=== PATIENT | female | born 1945 | race Caucasian/White ===

== ENCOUNTER 2021-03-18 15:02 | Emergency (ER) | payer MEDICARE, OTHER ==
--- NOTE | 2021-03-18 15:34 | ED Physician Documentation ---
PD HPI LOWER EXT INJURY - Stated complaint Stated Complaint: SWOLLEN L FT - Chief complaint Chief Complaint: Ext Problem - History obtained from History obtained from: Patient, Family - Additional information Additional information: This is a 76-year-old woman with history of hypertension who presents to the hospital today not knowing why she is here but for evaluation of a wound on the left foot. She is accompanied by her partner who is also her caregiver. I took a call about her from the walk-in clinic yesterday and for the last 2 years she has had worsening memory issues but no clear diagnosis of dementia. She has a wound on the left ankle from wearing shoes on the wrong feet recently with increasing redness there. No reported fevers but history is quite limited due to her dementia, she does not even know she is in the hospital. Review of Systems Unable to obtain: Dementia PD PAST MEDICAL HISTORY - Present Medications Home Medications: Ambulatory Orders Medication Instructions Recorded Confirmed Amox/Clav 875/125 [Augmentin] 1 each PO Q12H #20 tablet 03/18/21 Bacitracin Zinc Oint 1 applic TOP BID #1 gm 03/18/21 - Allergies Allergies/Adverse Reactions: Allergies Allergy/AdvReac Type Severity Reaction Status Date / Time No Known Drug Allergies Allergy Verified 03/18/21 15:23 PD ED PE NORMAL - Vitals Vital signs reviewed: Yes - General General: No acute distress, Well developed/nourished, Other (She is alert and oriented to person. She does not know that she is in the hospital or why. When I asked her why she is here she says "to eat." She has no specific complaints.) - HEENT HEENT: PERRL, EOMI - Neck Neck: Supple, no meningeal sign, No bony TTP - Cardiac Cardiac: RRR, No murmur - Respiratory Respiratory: No respiratory distress, Clear bilaterally - Abdomen Abdomen: Normal bowel sounds, Soft, Non tender - Back Back: No CVA TTP, No spinal TTP - Derm Derm: Normal color, Warm and dry - Extremities Extremities: Other (Both feet are unkempt but warm and well perfused. There is a 2 x 1 cm ulcer over the posterior left calcaneus with mild surrounding cellulitis.) - Neuro Eye Opening: Spontaneous Motor: Obeys Commands Verbal: Confused GCS Score: 14 Results - Vitals Vitals: Vital Signs - 24 hr 03/18/21 03/18/2103/18/21 15:18 15:27 17:19 Temperature 36.9 C 36.9 C 36.0 C L Heart Rate 109 H 109 H 106 H Respiratory 20 20 16 Rate Blood Pressure 130/90 H 130/90 H 125/71 O2 Saturation 96 96 99 Oxygen O2 Source Room air - Labs Labs: Microbiology 03/18/21 16:00 Wound Culture - Preliminary Foot - Left Laboratory Tests 03/18/21 03/18/21 03/18/21 15:55 15:55 15:58 WBC 6.0 RBC 4.07 L Hgb 13.0 Hct 39.1 MCV 96.1 MCH 31.9 H MCHC 33.2 RDW 13.3 Plt Count 328 MPV 9.2 Neut # (Auto) 4.1 Lymph # (Auto) 1.3 L [place] # (Auto) 0.5 Eos # (Auto) 0.1 Baso # (Auto) 0.0 Absolute Nucleated RBC 0.00 Nucleated RBC % 0.0 ESR 14 Sodium 138 Potassium 4.1 Chloride 102 Carbon Dioxide 25 Anion Gap 11.0 BUN 26 H Creatinine 1.0 Estimated GFR (MDRD) 54 L Glucose 142 H Lactic Acid Calcium 8.9 C-Reactive Protein < 1.0 03/18/21 15:58 WBC RBC Hgb Hct MCV MCH MCHC RDW Plt Count MPV Neut # (Auto) Lymph # (Auto) [place] # (Auto) Eos # (Auto) Baso # (Auto) Absolute Nucleated RBC Nucleated RBC % ESR Sodium Potassium Chloride Carbon Dioxide Anion Gap BUN Creatinine Estimated GFR (MDRD) Glucose Lactic Acid 2.8 H Calcium C-Reactive Protein PD MEDICAL DECISION MAKING - ED course ED course: 76-year-old woman seen in the emergency department [facility] for evaluation of a left heel pressure ulcer from wearing her shoes backwards and she does have signs of infection there. She is placed on antibiotics. Labs are reassuring with no sign of systemic illness. Cultures of blood and wound were taken. She is started on Augmentin. She is profoundly demented and her caregiver does need some help. He was seen extensively by her social insurance analyst gave him resources which he was very thankful for. Out of an abundance of caution she is also filing an APS complaint. But the patient's caregiver/partner is comfortable with discharge. Departure - Departure Disposition: 01 Home, Self Care Clinical Impression: Pressure ulcer of left foot, unstageable, Cellulitis of left foot, Dementia Condition: Good Record reviewed to determine appropriate education?: Yes Instructions: ED Dementia Caregiver Support Follow-Up: Real Dotson MD [Credentialed Staff Provider] - Prescriptions: Amox/Clav 875/125 [Augmentin] 1 each PO Q12H #20 tablet Bacitracin Zinc Oint 1 applic TOP BID #1 gm Comments: Christiane was seen today for a wound on her foot. We noted that she is quite demented. Her blood work looks okay without signs of infection spreading to the bloodstream, we did do cultures of the blood and wound and if changes are necessary based on those results we will call you when they come back. I am writing for an antibiotic which she should take twice a day and we gave you the first dose here in the emergency department. For wound care her feet should be washed with soap and water daily, and then a Band-Aid on the wound with the antibiotic ointment, and try to keep pressure off of it and wear well fitting shoes. She is to follow-up with Dr. Dotson for reevaluation and following the wound, potential referral to wound care if not healing well. Also to go over a more formal diagnosis of dementia. We are performing a wound culture, the results should be done in 48-72 hours. If antibiotic change is necessary we will call you. Return if worse in the meantime, especially if you develop increased pain, fevers, cannot keep down the medication. Otherwise follow-up with your physician in approximately 2-3 days.
--- NOTE | 2021-03-18 15:53 | XRAY Report ---
PROCEDURE: Calcaneus LT INDICATIONS: left ankle infection TECHNIQUE: Two views of the calcaneus were acquired. COMPARISON: None FINDINGS: Bones: No fractures or dislocations. No suspicious bony lesions. No osseous erosive changes. No per iosteal reaction. Soft tissues: No suspicious calcifications. Achilles tendon appears normal. Soft tissue gas. IMPRESSION: No marisabel evidence of osteomyelitis. Please note plain from radiographs can be insensitive to changes of osteomyelitis in the initial 15 days. If there is clinical concern for osteomyelitis, consider thr ee-phase nuclear medicine bone scan or MRI for additional evaluation. Reviewed by: Cammie Nava MD, PhD on 03/18/2021 3:52 PM PST Approved by: Cammie Nava MD, PhD on 03/18/2021 3:52 PM PST Station ID: [id number]
[2021-03-18 16:03] LABS: BASOPHILS % (AUTO) 0.5 %; EOSINOPHILS # (AUTO) 0.1 10^3/uL (0.0-0.7); EOSINOPHILS % (AUTO) 0.8 %; HCT - HEMATOCRIT 39.1 % (37.0-47.0); LYMPHOCYTES # (AUTO) 1.3 10^3/uL (1.5-3.5); LYMPHOCYTES % (AUTO) 21.3 %; MEAN CORPUSCULAR HEMOGLOBIN 31.9 pg (27.0-31.0); MEAN CORPUSCULAR HGB CONC 33.2 g/dL (32.0-36.0); MEAN CORPUSCULAR VOLUME 96.1 fL (81.0-99.0); MEAN PLATELET VOLUME 9.2 fL (7.9-10.8); MONOCYTES # (AUTO) 0.5 10^3/uL (0.0-1.0); MONOCYTES % (AUTO) 8.8 %; NEUTROPHILS # (AUTO) 4.1 10^3/uL (1.5-6.6); NEUTROPHILS % (AUTO) 68.3 %; PLT - PLATELET COUNT 328 10^3/uL (130-450); RED BLOOD COUNT 4.07 10^6/uL (4.20-5.40); RED CELL DISTRIBUTION WIDTH 13.3 % (12.0-15.0)
[2021-03-18 16:18] LABS: BUN - BLOOD UREA NITROGEN 26 mg/dL (6-20); CALCIUM 8.9 mg/dL (8.5-10.3); CARBON DIOXIDE - CO2 25 mmol/L (21-32); CHLORIDE 102 mmol/L (101-111); GFR - MDRD 54 (>89); GLUCOSE 142 mg/dL (70-100); POTASSIUM 4.1 mmol/L (3.5-5.0); SODIUM 138 mmol/L (135-145)
[2021-03-18 16:30] LABS: CRP - C-REACTIVE PROTEIN < 1.0 mg/dL (0-1.0)
[2021-03-18] MEDS ORDERED: AMOX/CLAV 875 MG/125 MG TABLET PO STA (17:17)
[2021-03-18 17:19] VITALS: BP 125/71
== END 2021-03-18 17:25 | disposition home or self-care (01) ==
LOC: ED 15:02
DX: L89.620 Pressure ulcer of left heel, unstageable (principal); L03.116 Cellulitis of left lower limb; F03.90 Unspecified dementia, unspecified severity, without behavioral disturbance, psychotic disturbance, mood disturbance, and anxiety
CPT/HCPCS: 36415; 73650; 80048; 83605; 85025; 85651; 86140; 87040; 87070; 87205; 99283; 99284; A9270

== ENCOUNTER 2021-07-13 01:31 | Outpatient (CLI) | payer MEDICARE | END 2021-07-13 01:32 | disposition critical access hospital (66) | LOC: EMS 01:31 | DX: S09.92XA Unspecified injury of nose, initial encounter (principal); X58.XXXA Exposure to other specified factors, initial encounter | CPT/HCPCS: A0425; A0429 ==

== ENCOUNTER 2021-07-13 01:59 | Inpatient (IN) | payer MEDICARE ==
[2021-07-13] MEDS ORDERED: TETANUS/DIPHTHERIA/PERTUSSIS 0.5 ML SYRINGE IM ONE (02:21)
[2021-07-13] MEDS ORDERED: SODIUM CHLORIDE 0.9% 500 ML IV STA ×2 (02:21→03:25)
[2021-07-13 02:27] LABS: BASOPHILS % (AUTO) 0.3 %; EOSINOPHILS % (AUTO) 0.1 %; HCT - HEMATOCRIT 43.2 % (37.0-47.0); HGB - HEMOGLOBIN 14.4 g/dL (12.0-16.0); LYMPHOCYTES # (AUTO) 0.9 10^3/uL (1.5-3.5); MEAN CORPUSCULAR HEMOGLOBIN 31.6 pg (27.0-31.0); MEAN CORPUSCULAR HGB CONC 33.3 g/dL (32.0-36.0); MEAN CORPUSCULAR VOLUME 94.7 fL (81.0-99.0); MEAN PLATELET VOLUME 9.3 fL (7.9-10.8); MONOCYTES # (AUTO) 0.7 10^3/uL (0.0-1.0); MONOCYTES % (AUTO) 4.7 %; NEUTROPHILS # (AUTO) 13.8 10^3/uL (1.5-6.6); NEUTROPHILS % (AUTO) 88.3 %; PLT - PLATELET COUNT 309 10^3/uL (130-450); RED BLOOD COUNT 4.56 10^6/uL (4.20-5.40); RED CELL DISTRIBUTION WIDTH 12.8 % (12.0-15.0); WHITE BLOOD COUNT 15.6 x10^3/uL (4.8-10.8)
[2021-07-13 02:41] LABS: ALBUMIN 3.9 g/dL (3.2-5.5); ALBUMIN/GLOBULIN RATIO 1.3 (1.0-2.2); ALKALINE PHOSPHATASE 92 IU/L (42-121); ALT ALANINE AMINOTRANSFERASE 15 IU/L (10-60); AST ASPARTATE AMINOTRANSFERASE 30 IU/L (10-42); BILIRUBIN,TOTAL 0.5 mg/dL (0.2-1.0); BUN - BLOOD UREA NITROGEN 21 mg/dL (6-20); CALCIUM 9.1 mg/dL (8.5-10.3); CARBON DIOXIDE - CO2 24 mmol/L (21-32); CHLORIDE 98 mmol/L (101-111); CREATININE 1.1 mg/dL (0.4-1.0); ETOH - ETHANOL < 5.0 mg/dL; GFR - MDRD 48 (>89); GLUCOSE 185 mg/dL (70-100); LIPASE 36 U/L (22-51); POTASSIUM 3.9 mmol/L (3.5-5.0); SODIUM 135 mmol/L (135-145); TOTAL PROTEIN 6.9 g/dL (6.7-8.2)
--- NOTE | 2021-07-13 03:06 | ED Physician Documentation ---
History of Present Illness - Stated complaint Stated Complaint: AMS - Chief complaint Chief Complaint: General - History obtained from History obtained from: Family (Patient's partner Linwood), EMS - Additonal information Additional information: Patient with reported history of dementia presenting for evaluation after unwitnessed fall. Per her partner Linwood, she became upset around 8 PM and left the house from the front door. He had then fallen asleep for about 30 minutes and when he awoke realized that she was still gone and went to go look for her with a neighbor friend. They were unable to locate her on their own so they called 911. Law enforcement and EMS were able to find her and she had r eportedly fallen in a neighbors yard.She sustained injuries to her face. Patient is very demented and has no idea why she is here, in fact she thinks that she is currently at home. Per Linwood, this would be her baseline.Per Linwood, she has not recently been ill. Review of Systems Unable to obtain: Dementia PD PAST MEDICAL HISTORY - Past Medical History Past Medical History: Yes Neuro: Dementia - Present Medications Home Medications: Ambulatory Orders Medication Instructions Recorded Confirmed No Known Home Medications 07/13/21 07/13/21 - Allergies Allergies/Adverse Reactions: Allergies Allergy/AdvReac Type Severity Reaction Status Date / Time Penicillins Allergy Unknown Unknown Verified 07/13/21 04:08 - Social History Does the pt smoke?: No Smoking Status: Never smoker PD ED PE NORMAL - General General: No acute distress, Well developed/nourished, Other. No: Alert and oriented X 3 - HEENT HEENT: PERRL, EOMI, Ears normal, Moist mucous membranes, Pharynx benign, Other (Abrasions to nose, dried blood in left nare, mild swelling to nose, no septal hematoma,No facial bony tenderness elsewhere). No: Atraumatic (ANO x1) - Neck Neck: Supple, no meningeal sign, No bony TTP. No: C-Spine cleared by NEXUS criteria (Due to dementia) - Cardiac Cardiac: No murmur, Strong equal pulses, Other (Tachycardic, regular rhythm) - Respiratory Respiratory: No respiratory distress, Clear bilaterally - Abdomen Abdomen: Normal bowel sounds, Soft, Non tender, Non distended - Back Back: No spinal TTP - Derm Derm: Normal color, No rash - Extremities Extremities: Other (Right upper arm tenderness to palpation with limited range of motion, distal pulses intact). No: No deformity - Neuro Neuro: Normal speech, Other (No facial asymmetry,Symmetric leg strength,Right arm weakness related to pain but intact education rep strength bilaterally). No: Alert and oriented X 3 PD ED PE EXPANDED - HEENT HEENT Visual: 1 - abrasion - Extremities VAHID UE/Hands Visual: 1 - tenderness Results - Vitals Vitals: Vital Signs - 24 hr 07/13/21 02:07 Temperature 36.4 C L Heart Rate 107 H Respiratory 18 Rate Blood Pressure 132/90 H O2 Saturation 95 Oxygen O2 Source Room air - EKG (time done) 0235 Rate: Rate (enter#) (102) Rhythm: Sinus tachycardia [place]: Normal Other comments: Other comments (Significant motion artifact affecting the baseline) - Labs Labs: Laboratory Tests 07/13/21 07/13/21 07/13/21 02:22 02:22 02:22 WBC 15.6 H RBC 4.56 Hgb 14.4 Hct 43.2 MCV 94.7 MCH 31.6 H MCHC 33.3 RDW 12.8 Plt Count 309 MPV 9.3 Neut # (Auto) 13.8 H Lymph # (Auto) 0.9 L [place] # (Auto) 0.7 Eos # (Auto) 0.0 Baso # (Auto) 0.0 Absolute Nucleated RBC 0.00 Nucleated RBC % 0.0 Sodium 135 Potassium 3.9 Chloride 98 L Carbon Dioxide 24 Anion Gap 13.0 BUN 21 H Creatinine 1.1 H Estimated GFR (MDRD) 48 L Glucose 185 H Lactic Acid Calcium 9.1 Total Bilirubin 0.5 AST 30 ALT 15 Alkaline Phosphatase 92 Total Creatine Kinase Troponin I High Sens 90.1 H* Total Protein 6.9 Albumin 3.9 Globulin 3.0 Albumin/Globulin Ratio 1.3 Lipase 36 TSH Urine Color Urine Clarity Urine pH Ur Specific [place] Urine Protein Urine Glucose (UA) Urine Ketones Urine Occult Blood Urine Nitrite Urine Bilirubin Urine Urobilinogen Ur Leukocyte Esterase Urine RBC Urine WBC Ur Squamous Epith Cells Urine Bacteria Ur Microscopic Review Urine Culture Comments Ethyl Alcohol < 5.0 SARS-CoV-2 (PCR) 07/13/21 07/13/21 07/13/21 02:22 02:22 02:39 WBC RBC Hgb Hct MCV MCH MCHC RDW Plt Count MPV Neut # (Auto) Lymph # (Auto) [place] # (Auto) Eos # (Auto) Baso # (Auto) Absolute Nucleated RBC Nucleated RBC % Sodium Potassium Chloride Carbon Dioxide Anion Gap BUN Creatinine Estimated GFR (MDRD) Glucose Lactic Acid 3.0 H* Calcium Total Bilirubin AST ALT Alkaline Phosphatase Total Creatine Kinase 755 H Troponin I High Sens Total Protein Albumin Globulin Albumin/Globulin Ratio Lipase TSH 4.15 Urine Color Urine Clarity Urine pH Ur Specific [place] Urine Protein Urine Glucose (UA) Urine Ketones Urine Occult Blood Urine Nitrite Urine Bilirubin Urine Urobilinogen Ur Leukocyte Esterase Urine RBC Urine WBC Ur Squamous Epith Cells Urine Bacteria Ur Microscopic Review Urine Culture Comments Ethyl Alcohol SARS-CoV-2 (PCR) 07/13/21 07/13/21 03:30 03:30 WBC RBC Hgb Hct MCV MCH MCHC RDW Plt Count MPV Neut # (Auto) Lymph # (Auto) [place] # (Auto) Eos # (Auto) Baso # (Auto) Absolute Nucleated RBC Nucleated RBC % Sodium Potassium Chloride Carbon Dioxide Anion Gap BUN Creatinine Estimated GFR (MDRD) Glucose Lactic Acid Calcium Total Bilirubin AST ALT Alkaline Phosphatase Total Creatine Kinase Troponin I High Sens Total Protein Albumin Globulin Albumin/Globulin Ratio Lipase TSH Urine Color YELLOW Urine Clarity CLEAR Urine pH 6.0 Ur Specific [place] 1.025 Urine Protein NEGATIVE Urine Glucose (UA) NEGATIVE Urine Ketones NEGATIVE Urine Occult Blood SMALL H Urine Nitrite NEGATIVE Urine Bilirubin NEGATIVE Urine Urobilinogen 0.2 (NORMAL) Ur Leukocyte Esterase NEGATIVE Urine RBC 0-5 Urine WBC 0-3 Ur Squamous Epith Cells RARE Squamous Urine Bacteria None Seen Ur Microscopic Review INDICATED Urine Culture Comments NOT INDICATED Ethyl Alcohol SARS-CoV-2 (PCR) NOT DETECTED PD MEDICAL DECISION MAKING - ED course Complexity details: re-evaluated patient, d/w family ED course: Patient is a 76-year-old female with a history of dementia who was found outside in a neighbors yard with a facial injury. It is unclear whether she had an unwitnessed fall versus syncope or another event causing her to fall. She is very confused which appears to be her baseline from previous ED visit. She does have tenderness and limited mobility to the right arm with a proximal humerus fracture seen. CT head, C-spine and maxillofacial were obtained demonstrating a nasal bone fracture. Labs were also reviewed with a mild leukocytosis and lactic acidosis. She is slightly tachycardic which has improved with IV fluids. No clear source for infection so antibiotics are held at this time and deferred to medicine team. Troponin is elevated but patient denies any chest pain or difficulty breathing. However she is likely not a reliable historian. Patient would benefit from observation as it is unclear what may have caused her fall versus syncope this evening. Her living situation may also be unsafe And social work will likely need to be consulted. 0325 - Dr. Mccracken was down in the ED and we discussed this pt. Agrees pt needs observation. Aware imaging and UA pending. Departure - Departure Disposition: ED Place in Observation Clinical Impression: Lactic acidosis, Elevated troponin Fall Qualifiers: Encounter type: initial encounter Qualified Code(s): W19.XXXA - Unspecified fall, initial encounter Proximal humeral fracture Qualifiers: Encounter type: initial encounter Fracture type: closed Fracture morphology: other fracture Fracture alignment: nondisplaced Laterality: right Qualified Code(s): S42.294A - Other nondisplaced fracture of upper end of right humerus, initial encounter for closed fracture Dementia Qualifiers: Dementia type: unspecified type Dementia behavioral disturbance: without behavioral disturbance Qualified Code(s): F03.90 - Unspecified dementia without behavioral disturbance Nasal bone fracture Qualifiers: Encounter type: initial encounter Fracture type: closed Qualified Code(s): S02.2XXA - Fracture of nasal bones, initial encounter for closed fracture Condition: Stable Discharge Date/Time: 07/13/21 04:39
[2021-07-13] MEDS ORDERED: ONDANSETRON ODT 4 MG TABLET TL PRN (03:33)
[2021-07-13] MEDS ORDERED: SODIUM CHLORIDE FLUSH 0.9% 10 ML SYRINGE IVP PRN (03:33)
[2021-07-13] MEDS ORDERED: oxyCODONE 5 MG TABLET PO PRN (03:33)
[2021-07-13] MEDS ORDERED: ONDANSETRON 4 MG/2 ML VIAL IVP PRN (03:33)
--- NOTE | 2021-07-13 03:39 | HISTORY & PHYSICAL EXAMINATION ---
Chief Complaint - Chief Complaint Chief Complaint: unwitnessed fall History of Present Illness - Admitted From Admitted From:: home by EMS - History Obtained From Records Reviewed: Yue louie History obtained from: past charts, ED provider Exam Limitations: patient has AMS - History of Present Illness HPI Comment/Other: This is a 76-year-old woman with dementia presenting today after an unwitnessed fall. She lives wit her partner Linwood who is also her caregiver. Apparently, she left the house at 8pm after she was reportedly upset and then Linwood fell asleep. When he woke up 30 minutes later, he could not find her so he asked a neighbor to help and eventually called 911. She was found by law enforcement and EMS in a neighbors yard on the lawn next to a rock. It was expected she was outside for ~2 hours. She had sustained trauma to her face but her temperature was in normal limits per EMS. Patient is A&O x0, very demented, answers questions with unrelated statements, and thinks she is at home. During evaluation she states that she "needs to get to the guys" and "wants to head out." When asked she does not know her name or where she is from. She reportedly lives with her partner and caregiver, Linwood Lomeli. She recently was seen in this ED in February 2021 for swollen left foot after being sent in by the walk-in clinic. There was a wound on left ankle from wearing shoes on wrong feet and she was given antibiotics for cellulitis. She was quite demented at this time, but had not been formally diagnosed. A referral was made to Dr. Dotson but according to records, patient never followed up. There are records from around 2008 from her previous PCP Dr. Nina [facility] and she has been seen here periodically throughout the years. History - Past Medical History Cardiovascular: reports: Hypertension Respiratory: reports: Other (allergic rhinitis) Neuro: reports: Dementia HEENT: reports: Other (retinal detatchment august 2008, fixed by surgery) Psych: reports: Anxiety Musculoskeletal: reports: Osteoporosis, Other (sciatica) Derm: reports: Herpes zoster (in 2019, post herpetic neuralgia on right arm) MRSA Hx?: No - Past Surgical History HEENT: reports: Detached retina repair - Family & Social History Family History: Mother: , Cancer (breast), [place] (before age 65), Father: Family History Comment/Other: Both parents , mom-breast [place] and [place] before the age of 65, one daughter in [place] who is reportedly healthy and busy with work, lives with her partner Linwood Lomeli. Living arrangement: At home Living Situation: With spouse/s.o. Social History Notes: PUJA Palumbo - Substance History Use: Uses substance without health or social issues: Alcohol (wine infrequently) Meds/Allgy - Home Medications Home Medications: Ambulatory Orders Medication Instructions Recorded Confirmed No Known Home Medications 07/13/21 07/13/21 - Allergies Allergies/Adverse Reactions: Allergies Allergy/AdvReac Type Severity Reaction Status Date / Time Penicillins Allergy Unknown Unknown Verified 07/13/21 04:08 Review of Systems - Other Findings Other Findings: patient is demented and unable to answer ROS questions Prior Level of Functionality: unknown at this time Exam - Vital Signs Reviewed Vital Signs: Yes Vital Signs: Vital Signs x48h Temp Pulse Resp BP Pulse Ox 07/13/21 02:07 36.4 C L 107 H 18 132/90 H 95 - Physical Exam General Appearance: positive: No acute distress (Elderly well-nourished white female sitting up in hospital bed with sheets off and gown pulled up), Anxious (asks if she can go home and if she can "get to the guys") Eyes Bilateral: positive: Normal inspection, PERRL, EOMI ENT: positive: Other (Dried blood below nostrils bilaterally, 1.5 cm shallow laceration to central forehead). 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 negative: Facial droop, Slurred/abnml speech (makes clear but nonsensical statements throughout evaluation) Conclusion/Plan - Problem List (1) Lactic acidosis Conclusion/Plan: Patient had unwitnessed fall and had a lactic acid of 3.0 at admission. She was down for an undetermined amount of time. Ddx for elevated lactic acid includes dehydration, LADARIUS, chronic liver disease, or infection. Will plan to monitor lactic acid and hydrate with LR. (2) Neutrophilic leukocytosis Conclusion/Plan: WBC 15.6 and neutrophils 13.8 at admission. Unknown if leukocytosis is s/t infection or demargination from unwitnessed fall. No signs of UTI on UA. CXR not back at this time. Will hold off on abx until CXR back. Will continue to monitor labs, hydrate with LR, and monitor for signs of infection. (3) Dementia Conclusion/Plan: Patient is very demented and may not be safe at home as evidenced by this recent admission. Plan to discuss with patient's partner and caregiver, Linwood, to hear about how things have been going at home and if he has additional help. Social work to consult in AM. (4) Proximal humeral fracture Conclusion/Plan: Likely s/t unwitnessed fall. Unclear if patient tripped, if she had syncope, or if there was an altercation. Right proximal humerus fracture evident on Xray. Patient placed in sling and orthopedic consult ordered. Patient seems unaware of pain and is using left arm to lift right arm and trying to remove sling. Plan to give Tylenol q6 hours. Qualifiers: Encounter type: initial encounter Fracture type: closed Laterality: right (5) Elevated troponin Conclusion/Plan: First high sensitivity troponin 90.1. Delta troponin ordered to monitor for change. EKG significant for tachycardia only. Placed patient on telemetry monitoring. Cannot rule out arrhythmia, syncope, or ACS as cause for fall. (6) Fall Conclusion/Plan: Unwitness fall. Unclear if patient's fall was mechanical or if due to arrhythmia or syncope. At this time shoulder xray shows proximal humeral fracture but maxilofacial xray, head and neck CT are not back yet. Will treat pain with tylenol q6. - Lab Results Fish Bones: 07/13/21 02:22 07/13/21 02:22 Core Measures - Issues Hospital Issues and Management Plan: Rule out arrythmia, syncope, or ACS for cause of fall. Determine if patient needs more or different caregiving support by social work. Hydrate and pain control. Ortho consult for humeral fracture. - DVT/VTE - Prophylaxis VTE/DVT Device ordered at admit?: Yes
[2021-07-13 03:52] LABS: BILIRUBIN,URINE NEGATIVE (NEGATIVE); GLUCOSE, URINE (UA) NEGATIVE (NEGATIVE); KETONES,URINE (UA) NEGATIVE (NEGATIVE); LEUKOCYTE ESTERASE, URINE NEGATIVE (NEGATIVE); NITRITE,URINE NEGATIVE (NEGATIVE); OCCULT BLOOD,URINE SMALL (NEGATIVE); PROTEIN,URINE NEGATIVE (NEGATIVE); UROBILINOGEN,URINE 0.2 (NORMAL) E.U./dL (NORMAL)
[2021-07-13 04:00] LABS: BACTERIA,URINE None Seen /HPF (None Seen); CLARITY,URINE CLEAR (CLEAR); RBC,URINE 0-5 /HPF (0-5); SQUAMOUS EPITHELIAL CELL,UR RARE Squamous (<= Few); WBC,URINE 0-3 /HPF (0-5)
[2021-07-13] MEDS: LACTATED RINGERS 1,000 ML IV SCH ×2 (04:39→15:26)
[2021-07-13] MEDS: ACETAMINOPHEN 325 MG TABLET PO SCH ×4 (04:39→21:05)
--- NOTE | 2021-07-13 07:30 | CT Report ---
PROCEDURE: HEAD WO INDICATIONS: trauma TECHNIQUE: Noncontrast 4.5 mm thick angled axial sections acquired from the foramen magnum to the vertex. For r adiation dose reduction, the following was used: automated exposure control, adjustment of mA and/or kV according to patient size. COMPARISON: None FINDINGS: Image quality: Excellent. CSF spaces: Basal cisterns are patent. No extra-axial fluid collections. The ventricles are symmet damian in size and shape. Brain: No intracranial bleeds or masses. There is cerebral volume loss for age, with resultant vent ricular and sulcal prominence. There are periventricular and deep white matter chronic small vessel ischemic changes. There is intracranial internal carotid artery atherosclerosis. Skull and face: Calvarium and visualized facial bones appear intact, without suspicious lesions. Sinuses: Visualized sinuses and mastoids are clear. IMPRESSION: No acute intracranial disease process. Reviewed by: Cammie Nava MD, PhD on 07/13/2021 7:28 AM PDT Approved by: Cammie Nava MD, PhD on 07/13/2021 7:28 AM PDT Station ID: [id number]
--- NOTE | 2021-07-13 07:34 | CT Report ---
PROCEDURE: CERVICAL SPINE WO INDICATIONS: trauma/dementia TECHNIQUE: Noncontrast 3 mm thick sections acquired from the skull base to the T4 level. Sagittal and coronal r eformats were then constructed. For radiation dose reduction, the following was used: automated exp osure control, adjustment of mA and/or kV according to patient size. COMPARISON: None. FINDINGS: Image quality: Excellent. Bones: No fractures or dislocations. Visualized superior ribs are intact. Spine degenerative disc d isease and facet arthropathy are noted. Soft tissues: Prevertebral soft tissues are normal in thickness. No paravertebral hematomas. No ap ical pneumothoraces. 1.6 cm left thyroid nodule. IMPRESSION: No fracture. No acute osseous lesion. If there is continued clinical concern for pathology, then MRI should be considered for further evaluation. Reviewed by: Cammie Nava MD, PhD on 07/13/2021 7:33 AM PDT Approved by: Cammie Nava MD, PhD on 07/13/2021 7:33 AM PDT Station ID: [id number]
--- NOTE | 2021-07-13 07:40 | CT Report ---
PROCEDURE: MAXILLOFACIAL WO INDICATIONS: trauma TECHNIQUE: Noncontrast 1.5 mm thick axial images acquired from the mandible through the frontal sinuses, with co renny and sagittal reformatting. For radiation dose reduction, the following was used: automated ex posure control, adjustment of mA and/or kV according to patient size. COMPARISON: None. FINDINGS: Image quality: Excellent. Bones and teeth: Orbital edouard are intact. Sinus edouard show no fracture or deformity. Tiny avulsion fracture of the anterior maxillary spine. Comminuted fracture of the anterior-inferior nasal septum and segmented, buckle fracture of the mid nasal septum. Minor, nondisplaced fractures involving the n bryan bones. Visualized portions of the mandible demonstrate no fractures or subluxation. Zygomatic a rches are intact. Pterygoid plates are intact. Visualized portions of the skull base and auditory c anals are intact. Sinuses: Paranasal sinuses are aerated, without fluid levels, mucosal thickening, or mucoceles. [place] air cells are aerated. Soft tissues: No edema, masses, or fluid collections. No enlarged lymph nodes. No soft tissue lace rations or debris. Vascular: Visualized vascular structures appear normal in the absence of contrast. Bony vascular fo ramina and canals are intact. IMPRESSION: Bilateral nasal bone, nasal septum and anterior maxillary spine fractures. Reviewed by: Cammie Nava MD, PhD on 07/13/2021 7:39 AM PDT Approved by: Cammie Nava MD, PhD on 07/13/2021 7:39 AM PDT Station ID: [id number]
--- NOTE | 2021-07-13 07:43 | XRAY Report ---
PROCEDURE: Chest 1 View X-Ray INDICATIONS: trauma TECHNIQUE: One view of the chest was acquired. COMPARISON: None FINDINGS: Surgical changes and devices: None. Lungs and pleura: No pleural effusions or pneumothorax. Linear opacity noted in the left lung base w hich could represent scarring or atelectasis. Mediastinum: Mediastinal contours appear normal. Heart size is normal. Bones and chest wall: No suspicious bony lesions. Overlying soft tissues appear unremarkable. Parti ally visualized right humeral head fracture. IMPRESSION: No acute cardiopulmonary disease process. Reviewed by: Cammie Nava MD, PhD on 07/13/2021 7:42 AM PDT Approved by: Cammie Nava MD, PhD on 07/13/2021 7:42 AM PDT Station ID: [id number]
--- NOTE | 2021-07-13 07:44 | XRAY Report ---
PROCEDURE: Humerus RT INDICATIONS: fall TECHNIQUE: 2 views of the humerus were acquired. COMPARISON: None FINDINGS: Bones: Comminuted, displaced fracture involving the right humeral head and neck. Soft tissues: No suspicious soft tissue calcifications. IMPRESSION: Comminuted right humeral head and neck fracture. Reviewed by: Cammie Nava MD, PhD on 07/13/2021 7:43 AM PDT Approved by: Cammie Nava MD, PhD on 07/13/2021 7:43 AM PDT Station ID: [id number]
--- NOTE | 2021-07-13 07:45 | XRAY Report ---
PROCEDURE: Shoulder 3 View RT INDICATIONS: fall TECHNIQUE: 3 views of the shoulder were acquired. COMPARISON: None. FINDINGS: Bones: Comminuted, displaced fracture involving the right humeral head and neck. No suspicious bony l esions. Visualized ribs appear intact. Soft tissues: No suspicious soft tissue calcifications. IMPRESSION: Comminuted right humeral head and neck fracture. Reviewed by: Cammie Nava MD, PhD on 07/13/2021 7:44 AM PDT Approved by: Cammie Nava MD, PhD on 07/13/2021 7:44 AM PDT Station ID: [id number]
[2021-07-13] MEDS: SODIUM CHLORIDE FLUSH 0.9% 10 ML SYRINGE IVP SCH ×3 (08:19→23:41)
--- NOTE | 2021-07-13 10:47 | PHARMACY PROGRESS NOTE ---
- Best Possible Medication History Admit Date and Time: 07/13/21 0333 Processed by: Nursing Medication History completed: Yes Patient Interview: Pt unable to participate Secondary Source(s): Spouse/Significant other As the person ultimately responsible for medication therapy, providers are able to order a medication from an existing home medication list in [facility] via the "Reconcile Routine" prior to Confirmation of that medication by product support consultant. Such practice is discouraged except when the physician, in their clinical judgment, deems that a medical need exists for a medication without regard to previous use.
[2021-07-13] MEDS: CHOLECALCIFEROL 25 MCG TABLET PO SCH (11:15)
[2021-07-13] MEDS: CALCIUM CARBONATE CHEW 500 MG TABLET PO SCH (21:05)
[2021-07-14] MEDS: ACETAMINOPHEN 325 MG TABLET PO SCH ×4 (04:41→21:15)
[2021-07-14 05:11] LABS: BASOPHILS % (AUTO) 0.2 %; EOSINOPHILS # (AUTO) 0.1 10^3/uL (0.0-0.7); EOSINOPHILS % (AUTO) 0.8 %; HCT - HEMATOCRIT 35.2 % (37.0-47.0); HGB - HEMOGLOBIN 11.8 g/dL (12.0-16.0); LYMPHOCYTES # (AUTO) 0.9 10^3/uL (1.5-3.5); LYMPHOCYTES % (AUTO) 14.5 %; MEAN CORPUSCULAR HEMOGLOBIN 31.6 pg (27.0-31.0); MEAN CORPUSCULAR HGB CONC 33.5 g/dL (32.0-36.0); MEAN CORPUSCULAR VOLUME 94.4 fL (81.0-99.0); MEAN PLATELET VOLUME 9.5 fL (7.9-10.8); MONOCYTES # (AUTO) 0.6 10^3/uL (0.0-1.0); MONOCYTES % (AUTO) 9.2 %; NEUTROPHILS # (AUTO) 4.7 10^3/uL (1.5-6.6); NEUTROPHILS % (AUTO) 74.8 %; PLT - PLATELET COUNT 241 10^3/uL (130-450); RED BLOOD COUNT 3.73 10^6/uL (4.20-5.40); WHITE BLOOD COUNT 6.2 x10^3/uL (4.8-10.8)
[2021-07-14 05:23] LABS: CALCIUM 8.5 mg/dL (8.5-10.3); CREATININE 0.8 mg/dL (0.4-1.0); POTASSIUM 3.8 mmol/L (3.5-5.0)
[2021-07-14] MEDS ORDERED: SODIUM CHLORIDE 0.9% 1,000 ML IV SCH ×3 (08:00→09:08)
[2021-07-14] MEDS: CHOLECALCIFEROL 25 MCG TABLET PO SCH (08:33)
[2021-07-14] MEDS: SODIUM CHLORIDE FLUSH 0.9% 10 ML SYRINGE IVP SCH ×2 (08:33→16:40)
[2021-07-14] MEDS: CALCIUM CARBONATE CHEW 500 MG TABLET PO SCH ×2 (08:33→20:00)
[2021-07-14] MEDS: SODIUM CHLORIDE 0.9% 1,000 ML IV SCH ×2 (10:31→18:58)
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
[2021-07-15] MEDS: SODIUM CHLORIDE FLUSH 0.9% 10 ML SYRINGE IVP SCH ×3 (01:10→16:34)
[2021-07-15] MEDS: ACETAMINOPHEN 325 MG TABLET PO SCH ×4 (03:33→21:24)
[2021-07-15 04:58] LABS: BASOPHILS % (AUTO) 0.5 %; EOSINOPHILS # (AUTO) 0.1 10^3/uL (0.0-0.7); HCT - HEMATOCRIT 30.9 % (37.0-47.0); HGB - HEMOGLOBIN 10.3 g/dL (12.0-16.0); LYMPHOCYTES # (AUTO) 0.8 10^3/uL (1.5-3.5); LYMPHOCYTES % (AUTO) 14.3 %; MEAN CORPUSCULAR HEMOGLOBIN 31.6 pg (27.0-31.0); MEAN CORPUSCULAR HGB CONC 33.3 g/dL (32.0-36.0); MEAN CORPUSCULAR VOLUME 94.8 fL (81.0-99.0); MEAN PLATELET VOLUME 9.5 fL (7.9-10.8); MONOCYTES # (AUTO) 0.5 10^3/uL (0.0-1.0); MONOCYTES % (AUTO) 8.6 %; NEUTROPHILS # (AUTO) 4.3 10^3/uL (1.5-6.6); NEUTROPHILS % (AUTO) 75.3 %; PLT - PLATELET COUNT 235 10^3/uL (130-450); RED BLOOD COUNT 3.26 10^6/uL (4.20-5.40); WHITE BLOOD COUNT 5.7 x10^3/uL (4.8-10.8)
[2021-07-15 05:09] LABS: CREATININE 0.7 mg/dL (0.4-1.0); POTASSIUM 3.7 mmol/L (3.5-5.0)
[2021-07-15] MEDS: SODIUM CHLORIDE 0.9% 1,000 ML IV SCH (08:49)
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
[2021-07-15] MEDS: CALCIUM CARBONATE CHEW 500 MG TABLET PO SCH ×2 (11:10→21:23)
[2021-07-15] MEDS: CHOLECALCIFEROL 25 MCG TABLET PO SCH (11:11)
[2021-07-16] MEDS: SODIUM CHLORIDE 0.9% 1,000 ML IV SCH ×2 (01:17→13:47)
[2021-07-16] MEDS: SODIUM CHLORIDE FLUSH 0.9% 10 ML SYRINGE IVP SCH ×3 (01:41→16:09)
[2021-07-16] MEDS: ACETAMINOPHEN 325 MG TABLET PO SCH ×4 (05:08→23:15)
[2021-07-16 06:29] LABS: CREATININE 0.7 mg/dL (0.4-1.0); POTASSIUM 3.7 mmol/L (3.5-5.0)
[2021-07-16] MEDS: CALCIUM CARBONATE CHEW 500 MG TABLET PO SCH ×2 (08:13→21:01)
[2021-07-16] MEDS: CHOLECALCIFEROL 25 MCG TABLET PO SCH (08:13)
--- NOTE | 2021-07-16 09:31 | PROVIDER PROGRESS NOTE ---
Assessment/Plan - Problem List (1) Altered mental state Assessment/Plan: Patient had CT of the head which showed no acute intracranial disease process. She may now be at her baseline which is oriented only to self. She has hx of Alzheimers dementia. Records from [facility] were received and she had "Alzhe jono's Dementia" stated since 2017. We have noticed behavioral disturbances of refusing care (sling being removed), refused blood draw today, has wanted to leave AMA. We obtianed a cognitive eval by OT today and she scored 0/19 (see #6). (2) Fall at home Conclusion/Plan: She had an unwitness fall, after wandering out of the house, and has a comminuted R humerus fracture and facial CT showed bilateral nasal bone, nasal septum and anterior maxillary sinus fractures. PT has started to work with her. She is still at the high risk of falls based on her advanced dementia, weakness and chronic lumbar pain (as per [facility] records recvd today). We hope pt can go to SNF/memory care unit when ready for DC, for PT and OT rehab. We have consulted with PT/OT and social media specialist. The SO's daughter is to arrive in town, and will be involved regarding this pt's disposition. (3) Rhabdomyolysis Conclusion/Plan: It is unknown how long the patient was down on the ground at the [facility] backyard, when she was found by police. Her CK has trended down lately (755>> 919>> 690 yesterday>> 396 today). Her rhabdo did not cause permanent renal failure, as her BUN/creat have improved. Will continue IVF and lab monitoring (4) Proximal humeral fracture Conclusion/Plan: She had an unwitness fall, has a comminuted R humerus fracture. Patient was placed in a sling in the ER and orthopedic consult was ordered. Dr. Huffman (Orthopedist) has not written his consult yet. The last Hospitalist, Rob Godwin NP, called Dr Black several days ago and he recommend no surgery for pt at this point, continue pain control, wear sling, and followup with orthopedics in office. Patient seems unaware of pain and is trying to use left arm, and maneuver out of sling. Will reach out to Ortho again for the Consult re: management with sling or other device, and what she should not be doing. OT has started to work with her. (5) Nasal and maxillary fracture Conclusion/Plan: She claims she has no pain. The bruises are subsiding. She is eating and drinking without trouble. (6) Alzheimers Dementia Conclusion/Plan: Patient is very demented. She is only oriented to self. Jet, her SO, has been her caregiver and they are never apart. She fired a hired caregiver after 2 days in the past, because the caregiver was impacting "her independence". Today she scored 0/19 on Cognitive Eval done by OT. The pt became frustrated and agitated at the end. Her SO was in room and witnessed the results. I spoke to Jet, outside of the room and explained to him that she has the memory and ability to make proper decisions like that of a child. Therefore he should step in and make decisions and staff are not taking her demands at face value. She would not be safe at home in her past living situation, as evidenced by wandering off, this recent fall, and her results on cognitive testing. We have consulted with social work, and the PUJA's daughter is arriving back from a trip in 1-2 days and wants to be involved in managing their living situation. (7) Anemia Conclusion/Plan: Hgb at presentation was 14 and with 3 days of iv hydration for dehydration and rhabdomyolysis, Hgb is 10 today, therefore partly hemodilutional anemia. Will check Iron panel, B12 and Folate levels and replace if low. (8) Osteopenia Conclusion/Plan: This was documented in her records from [facility] and she used to be on Evista. She was on no meds whatsoever now at admission. Here we have started vitamin D and Ca supplements. (9) Dehydration Conclusion/Plan: Resolved. Creatinine and BUN was normal range now (10) Neutrophilic leukocytosis Conclusion/Plan: Resolved. It likely was a phase reactant. No evidence of infection. (11) Elevated troponin Conclusion/Plan: Improved. Her troponins were 90>> 114>> 128>> 79. EKG did not show acute ischemic changes. Pt has been hemodynamically stable. It was likely demand ischemia from the dehydration and falling event. (12) Lactic acidosis Conclusion/Plan: Resolved. Patient's elevated lactic acid at admission was likely caused by patient's significant dehydration. - Current Meds Current Meds: Current Medications Generic Name Dose Route Start Last Admin Trade Name Gonzalo PRN Reason Stop Dose Admin Acetaminophen 650 mg 07/13/21 04:00 07/16/21 05:08 Acetaminophen 325 Mg Tablet PO Not Given Q6H SHAHRZAD Calcium Carbonate/Glycine 500 mg 07/13/21 21:00 07/16/21 08:13 Calcium Carbonate Chew 500 Mg Tablet PO 500 mg BID SHAHRZAD Administration Cholecalciferol 50 mcg 07/13/21 10:00 07/16/21 08:13 Cholecalciferol 25 Mcg Tablet PO 50 mcg DAILY SHAHRZAD Administration Sodium Chloride 1,000 mls @ 83.333 mls/hr 07/15/21 09:00 07/16/21 06:00 Normal Saline 0.9% IV 83.3 mls/hr .Q12H SHAHRZAD Infusion Sodium Chloride 10 ml 07/13/21 03:33 07/13/21 04:40 Sodium Chloride Flush 0.9% 10 Ml Syringe IVP 10 ml PRN PRN Administration NEEDED PER PROVIDER ORDERS Sodium Chloride 10 ml 07/13/21 09:00 07/16/21 08:14 Sodium Chloride Flush 0.9% 10 Ml Syringe IVP 10 ml 0100,0900,1700 SHAHRZAD Administration - Lab Result Fish Bone Diagrams: 07/15/21 04:38 07/16/21 06:10 - Additional Planning My Orders: My Active Orders 07/16/21 05:00 CK- CREATINE KINASE [CHEM] Routine Subjective - Subjective Patient Reports: Other (She says she has no pain anywhere and wants to go home) Objective Vital Signs: Vital Signs - 24 hr 07/15/21 07/15/21 07/15/21 10:54 16:02 20:03 Temperature 36.8 C 36.8 C 36.7 C Heart Rate [ 111 H 86 80 Brachial] Heart Rate [ Radial] Respiratory 18 24 24 Rate Blood Pressure 129/82 H 133/81 H 137/82 H [Left Brachial artery] Blood Pressure [Left Radial artery] O2 Saturation 97 99 99 07/16/21 07/16/21 07/16/21 01:21 03:09 07:38 Temperature 37.3 C 36.4 C L Heart Rate [ 78 Brachial] Heart Rate [ 75 89 Radial] Respiratory 18 19 16 Rate Blood Pressure 138/73 H 150/71 H [Left Brachial artery] Blood Pressure 136/73 H [Left Radial artery] O2 Saturation 96 96 97 Oxygen O2 Source Room air I&O (Last 24 Hrs): Intake and Output Totals x24h 07/14/21 07/15/21 07/16/21 23:59 23:59 23:59 Intake Total 3046.667 3335.333 952.898 Output Total 250 100 Balance 3046.667 3085.333 852.898 General: Alert (Only oriented to self) HEENT: Mucous membr. moist/pink, Other (Swollen upper lip and bruise on nose) Neck: Supple, No JVD Neuro: Alert, Non Focal, Other (Oriented only to self, states that she "got out of bed today and started cleaning", wants to go home, told it was not safe yet, as she fell, she answered she "falls all the time" and likes to go fishing with her father", Jet (SO) at bedside said Pt's father is ) Cardiovascular: Regular rate Respiratory: No respiratory distress Abdomen: Soft Extremities: No edema, Other (R arm in sling) - Results Results: Laboratory Results WBC 5.7 x10^3/uL (4.8-10.8) 07/15/21 04:38 RBC 3.26 10^6/uL (4.20-5.40) L 07/15/21 04:38 Hgb 10.3 g/dL (12.0-16.0) L 07/15/21 04:38 Hct 30.9 % (37.0-47.0) L 07/15/21 04:38 MCV 94.8 fL (81.0-99.0) 07/15/21 04:38 MCH 31.6 pg (27.0-31.0) H 07/15/21 04:38 MCHC 33.3 g/dL (32.0-36.0) 07/15/21 04:38 RDW 13.0 % (12.0-15.0) 07/15/21 04:38 Plt Count 235 10^3/uL (130-450) 07/15/21 04:38 MPV 9.5 fL (7.9-10.8) 07/15/21 04:38 Neut # (Auto) 4.3 10^3/uL (1.5-6.6) 07/15/21 04:38 Lymph # (Auto) 0.8 10^3/uL (1.5-3.5) L 07/15/21 04:38 [place] # (Auto) 0.5 10^3/uL (0.0-1.0) 07/15/21 04:38 Eos # (Auto) 0.1 10^3/uL (0.0-0.7) 07/15/21 04:38 Baso # (Auto) 0.0 10^3/uL (0.0-0.1) 07/15/21 04:38 Absolute Nucleated RBC 0.00 x10^3/uL 07/15/21 04:38 Nucleated RBC % 0.0 /100WBC 07/15/21 04:38 Sodium 137 mmol/L (135-145) 07/16/21 06:10 Potassium 3.7 mmol/L (3.5-5.0) 07/16/21 06:10 Chloride 107 mmol/L (101-111) 07/16/21 06:10 Carbon Dioxide 22 mmol/L (21-32) 07/16/21 06:10 Anion Gap 8.0 (6-13) 07/16/21 06:10 BUN 16 mg/dL (6-20) 07/16/21 06:10 Creatinine 0.7 mg/dL (0.4-1.0) 07/16/21 06:10 Estimated GFR (MDRD) 82 (>89) L 07/16/21 06:10 Glucose 108 mg/dL (70-100) H 07/16/21 06:10 Lactic Acid 2.0 mmol/L (0.5-2.2) 07/13/21 07:53 Calcium 8.0 mg/dL (8.5-10.3) L 07/16/21 06:10 Magnesium 1.8 mg/dL (1.7-2.8) 07/13/21 16:31 Total Bilirubin 0.5 mg/dL (0.2-1.0) 07/13/21 02:22 AST 30 IU/L (10-42) 07/13/21 02:22 ALT 15 IU/L (10-60) 07/13/21 02:22 Alkaline Phosphatase 92 IU/L (42-121) 07/13/21 02:22 Total Creatine Kinase 690 IU/L (22-269) H 07/15/21 04:38 Troponin I High Sens 79.4 ng/L (2.3-14.8) H* 07/13/21 16:31 Total Protein 6.9 g/dL (6.7-8.2) 07/13/21 02:22 Albumin 3.9 g/dL (3.2-5.5) 07/13/21 02:22 Globulin 3.0 g/dL (2.1-4.2) 07/13/21 02:22 Albumin/Globulin Ratio 1.3 (1.0-2.2) 07/13/21 02:22 Lipase 36 U/L (22-51) 07/13/21 02:22 TSH 4.15 uIU/mL (0.34-5.60) 07/13/21 02:22 Urine Color YELLOW 07/13/21 03:30 Urine Clarity CLEAR (CLEAR) 07/13/21 03:30 Urine pH 6.0 PH (5.0-7.5) 07/13/21 03:30 Ur Specific [place] 1.025 (1.002-1.030) 07/13/21 03:30 Urine Protein NEGATIVE mg/dL (NEGATIVE) 07/13/21 03:30 Urine Glucose (UA) NEGATIVE mg/dL (NEGATIVE) 07/13/21 03:30 Urine Ketones NEGATIVE mg/dL (NEGATIVE) 07/13/21 03:30 Urine Occult Blood SMALL (NEGATIVE) H 07/13/21 03:30 Urine Nitrite NEGATIVE (NEGATIVE) 07/13/21 03:30 Urine Bilirubin NEGATIVE (NEGATIVE) 07/13/21 03:30 Urine Urobilinogen 0.2 (NORMAL) E.U./dL (NORMAL) 07/13/21 03:30 Ur Leukocyte Esterase NEGATIVE (NEGATIVE) 07/13/21 03:30 Urine RBC 0-5 /HPF (0-5) 07/13/21 03:30 Urine WBC 0-3 /HPF (0-5) 07/13/21 03:30 Ur Squamous Epith Cells RARE Squamous (<= Few) 07/13/21 03:30 Urine Bacteria None Seen /HPF (None Seen) 07/13/21 03:30 Ur Microscopic Review INDICATED 07/13/21 03:30 Urine Culture Comments NOT INDICATED 07/13/21 03:30 Ethyl Alcohol < 5.0 mg/dL 07/13/21 02:22 SARS-CoV-2 (PCR) NOT DETECTED 07/13/21 03:30
--- NOTE | 2021-07-16 14:53 | CONSULTATION NOTE ---
Referring Provider Name of Referring Provider:: Dr. Moody Consult Date: 07/16/21 Chief Complaint - Chief Complaint Chief Complaint: pain right shoulder following fall History of Present Illness - History Obtained From Records Reviewed: yes History obtained from: caregiver and physicians - History of Present Illness HPI Comment/Other: This is a 76-year-old woman with a history of altered mental status on a chronic basis. Apparently she has Alzheimer's dementia and wandered out of the house and was found at least 2 hours later on the ground with signs of injury to face and right shoulder. She has a good friend and caregiver who resides with her. He is at her bedside today and is also a patient of mine. The patient was identified as having several problems. She was admitted to the hospital following evaluation emergency room primarily for nonorthopedic related issues. I was not called by the emergency room at time of injury but they did suggest orthopedic consultation. I had initially reviewed her x-rays and made some initial recommendations but not a formal consult. Ordinarily, this type of fracture would be sent home as an outpatient and not hospitalized. The patient seems to be doing well with her right upper extremity. She does have some pain to her right shoulder but it seems to be well controlled. She removes her adjust the sling periodically. She did not seem to be any acute distress I talked to her and her pain seemed to be in good control. She is actually in good spirits, alert but does not seem to comprehend or provide any meaningful history. She does articulate well. Her fall was unwitnessed. The circumstances associated with the fall are not known. She is not had previous problems with her right shoulder. History - Past Medical History Cardiovascular: reports: Hypertension Respiratory: reports: Other Neuro: reports: Dementia HEENT: reports: Other (retinal detatchment august 2008, fixed by surgery) Psych: reports: Anxiety Musculoskeletal: reports: Osteoporosis Derm: reports: Herpes zoster MRSA Hx?: No Other Past Medical History: sciatica. herpes zoster - Past Surgical History HEENT: reports: Detached retina repair - Family & Social History Family History: Mother: , Cancer (breast), [place] (before age 65), Father: Family History Comment/Other: Both parents , mom-breast CA and NH before the age of 65, one daughter in [place] who is reportedly healthy and busy with work, lives with her partner Linwood Lomeli. Living arrangement: At home Living Situation: With spouse/s.o. Social History Notes: PUJA Palumbo - Substance History Use: Uses substance without health or social issues: Alcohol (wine infrequently) Meds/Allgy - Home Medications Home Medications: Ambulatory Orders Medication Instructions Recorded Confirmed No Known Home Medications 07/13/21 07/13/21 - Allergies Allergies/Adverse Reactions: Allergies Allergy/AdvReac Type Severity Reaction Status Date / Time Penicillins Allergy Unknown Unknown Verified 07/13/21 04:08 Exam - Vital Signs Vital Signs: Vital Signs x48h Temp Pulse Resp BP Pulse Ox 07/16/21 12:34 37.2 C 89 18 150/79 H 97 07/16/21 07:38 36.4 C L 89 16 136/73 H 97 - Physical Exam General Appearance: positive: No acute distress, Alert Respiratory: positive: No respiratory distress Skin: positive: Warm, Dry Neurologic/Psychiatric: positive: Motor nml, Disoriented to person, Disoriented to place, Disoriented to time. negative: Sensation nml (Extremities: Right shoulder has swelling, mild ecchymosis and tenderness. There is limited motion to right shoulder. Right elbow, wrist and hand are nontender, no swelling or ecchymosis. Neurovascular intact right upper extremity) Conclusion and Plan - Lab Results Laboratory Results 07/16/21 06:10: Total Creatine Kinase 396 H 07/16/21 06:10: Sodium 137, Potassium 3.7, Chloride 107, Carbon Dioxide 22, Anion Gap 8.0, BUN 16, Creatinine 0.7, Estimated GFR (MDRD) 82 L, Glucose 108 H, Calcium 8.0 L 07/15/21 04:38: Sodium 137, Potassium 3.7, Chloride 104, Carbon Dioxide 25, Anion Gap 8.0, BUN 14, Creatinine 0.7, Estimated GFR (MDRD) 82 L, Glucose 131 H, Calcium 8.0 L, Total Creatine Kinase 690 H 07/15/21 04:38: WBC 5.7, RBC 3.26 L, Hgb 10.3 L, Hct 30.9 L, MCV 94.8, MCH 31.6 H, MCHC 33.3, RDW 13.0, Plt Count 235, MPV 9.5, Neut # (Auto) 4.3, Lymph # (Auto) 0.8 L, [place] # (Auto) 0.5, Eos # (Auto) 0.1, Baso # (Auto) 0.0, Absolute Nucleated RBC 0.00, Nucleated RBC % 0.0 - Diagnostic Imaging Results Diagnostic Imaging Results: negative: Read independently (There is a comminuted, displaced, proximal humerus fracture involving surgical neck, tuberosities and humeral head right shoulder. This fracture is both extra-articular and intra- articular) - Diagnosis Diagnosis: Closed, comminuted proximal humerus fracture right shoulder associated with osteoporosis - Consultation Note Consultation Note: And given the patient's comorbidities, she is primarily a nonoperative candidate as many people with this injury. I would recommend a sling for comfort. If the patient has minimal pain, she does not need to wear a sling full-time. She may discontinue the sling as pain permits. The plan will be to recheck her as an outpatient. She may have active motion of hand, wrist and right elbow, passive motion right shoulder - Plan Plan: The plan would be active motion of right elbow, wrist and hand and passive motion right shoulder. The sling can be utilized as needed for pain only. Discussed my findings with her hospitalist. Please make an outpatient orthopedic appointment upon discharge for patient.
[2021-07-17] MEDS: SODIUM CHLORIDE 0.9% 1,000 ML IV SCH ×2 (01:19→12:51)
[2021-07-17] MEDS: SODIUM CHLORIDE FLUSH 0.9% 10 ML SYRINGE IVP SCH ×4 (04:37→23:27)
[2021-07-17] MEDS: ACETAMINOPHEN 325 MG TABLET PO SCH ×4 (04:37→20:44)
[2021-07-17 05:00] LABS: BASOPHILS % (AUTO) 0.4 %; EOSINOPHILS # (AUTO) 0.1 10^3/uL (0.0-0.7); EOSINOPHILS % (AUTO) 0.8 %; HCT - HEMATOCRIT 29.9 % (37.0-47.0); LYMPHOCYTES # (AUTO) 0.7 10^3/uL (1.5-3.5); LYMPHOCYTES % (AUTO) 10.2 %; MEAN CORPUSCULAR HEMOGLOBIN 31.4 pg (27.0-31.0); MEAN CORPUSCULAR HGB CONC 33.4 g/dL (32.0-36.0); MEAN PLATELET VOLUME 9.4 fL (7.9-10.8); MONOCYTES # (AUTO) 0.6 10^3/uL (0.0-1.0); NEUTROPHILS # (AUTO) 5.7 10^3/uL (1.5-6.6); NEUTROPHILS % (AUTO) 80.2 %; PLT - PLATELET COUNT 252 10^3/uL (130-450); RED BLOOD COUNT 3.18 10^6/uL (4.20-5.40); RED CELL DISTRIBUTION WIDTH 12.7 % (12.0-15.0); WHITE BLOOD COUNT 7.1 x10^3/uL (4.8-10.8)
[2021-07-17 05:26] LABS: CALCIUM 7.9 mg/dL (8.5-10.3); CREATININE 0.7 mg/dL (0.4-1.0); POTASSIUM 3.8 mmol/L (3.5-5.0)
[2021-07-17 05:37] LABS: FOLATE 5.57 ng/mL (5.90 - >24.8)
[2021-07-17] MEDS: CYANOCOBALAMIN 500 MCG TABLET PO SCH (09:27)
[2021-07-17] MEDS: FOLIC ACID 1 MG TABLET PO SCH (09:28)
[2021-07-17] MEDS: FERROUS GLUCONATE 324 MG TABLET PO SCH ×2 (09:29→16:41)
[2021-07-17] MEDS: CHOLECALCIFEROL 25 MCG TABLET PO SCH (09:30)
[2021-07-17] MEDS: CALCIUM CARBONATE CHEW 500 MG TABLET PO SCH ×2 (09:32→20:44)
--- NOTE | 2021-07-17 11:29 | PROVIDER PROGRESS NOTE ---
Assessment/Plan - Problem List (1) Rhabdomyolysis Assessment/Plan: It is unknown how long the patient was down on the ground in the [facility] backyard, when she was found by police. Her CK has trended down lately (755>> 919>> 690>> 396>> 246). Her rhabdo did not cause permanent renal failure, as her BUN/creat have improved. Will continue one more day of IV fluids, will decrease the rate and will continue lab monitoring. (2) Fall at home Conclusion/Plan: She had an unwitnessed fall, after wandering out of the house, and has a comminuted R humerus fracture and facial CT showed bilateral nasal bone, nasal septum and anterior maxillary sinus fractures. PT has started to work with her. She is still at the high risk of falls based on her advanced dementia, weakness and chronic lumbar pain (as per [facility] records that we recvd). Will order orthostatic VS checks, which have not been done yet this admission. Will replace deficiencies that are found to be causing her marked anemia (see #7 and #8). We hope pt can go to SNF/memory care unit when ready for [facility], for PT and OT rehab. We have consulted with PT/OT and social psychologist. The SO's daughter is to arrive in [facility], and will be involved regarding this pt's disposition. (3) Proximal humeral fracture Conclusion/Plan: She had an unwitnessed fall, has a comminuted R humerus fracture. Patient was placed in a sling in the ER and orthopedic consult was ordered. Dr. Huffman documented his consult, confirming what he discussed with the last Hiospitalist, Rob Godwin NP, when the Orthopedist recommend no surgery for pt at this point, continue pain control, wear sling prn, and followup with orthopedics in office setting. Patient seems unaware of pain and has been trying to use right arm, and maneuver out of sling. Ortho approved she may have a break from wearing the sling. PT and OT have started to work with her. (4) Nasal and maxillary fracture Conclusion/Plan: She claims she has no pain. The bruises are subsiding. She is eating and drinking without trouble. (6) Alzheimers Dementia Conclusion/Plan: She was described as having "altered mental status" at admission but we now thi nk this is her baseline. Patient is very demented. She is only oriented to self an Jet, her SO. He has been her caregiver and they are never apart, have lived together for >25 years. She fired a hired caregiver after 2 days in the recent past, because the caregiver was impacting "her independence". She has wandered outside at least twice, as per Jet. She scored 0/19 on Cognitive Eval done by OT. The pt became frustrated and agitated at the end. Her SO was in room and witnessed the poor results. I spoke to Jet, outside of the room and explained to him that she has the memory and ability to make proper decisions like that of a 3 year old child. Therefore, I advised he should step in and make decisions and staff are not taking her demands at face value. She would not be safe at home in her past living situation, as evidenced by wandering off, this recent fall, and her results on cognitive testing. We have consulted with social work, and the SO's daughter is arriving back from a trip and wants to be involved in managing their living situation. The patient has no children herself. (7) Iron deficiency anemia Will start oral Ferrous Gluconate replacement. Follow H/H daily, would transfuse if Hgb <7. 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 Given the marked anemia and deficiency of iron, B12 and folate, I suspect she has poor nutrition at home, related to her dementia. (9) Osteopenia Conclusion/Plan: This was documented in her records from [facility] and she used to be on Evista. She was on no meds whatsoever now at admission. Here we have started vitamin D and Ca supplements. (10) Dehydration Conclusion/Plan: Resolved. Creatinine and BUN are in a normal range now (11) Neutrophilic leukocytosis Conclusion/Plan: Resolved. It likely was a phase reactant. No evidence of infection. (12) Elevated troponin Conclusion/Plan: Improved. Her troponins were 90>> 114>> 128>> 79. EKG did not show acute ische timmy changes. Pt has been hemodynamically stable. It was likely demand ischemia from the dehydration and falling event. (13) Lactic acidosis Conclusion/Plan: Resolved. Patient's elevated lactic acid at admission was likely caused by patient's significant dehydration. - Current Meds Current Meds: Current Medications Generic Name Dose Route Start Last Admin Trade Name Gonzalo PRN Reason Stop Dose Admin Acetaminophen 650 mg 07/13/21 04:00 07/17/21 09:24 Acetaminophen 325 Mg Tablet PO 650 mg Q6H SHAHRZAD Administration Calcium Carbonate/Glycine 500 mg 07/13/21 21:00 07/17/21 09:32 Calcium Carbonate Chew 500 Mg Tablet PO 500 mg BID SHAHRZAD Administration Cholecalciferol 50 mcg 07/13/21 10:00 07/17/21 09:30 Cholecalciferol 25 Mcg Tablet PO 50 mcg DAILY SHAHRZAD Administration Cyanocobalamin 500 mcg 07/17/21 09:00 07/17/21 09:27 Cyanocobalamin 500 Mcg Tablet PO 500 mcg DAILY SHAHRZAD Administration Ferrous Gluconate 324 mg 07/17/21 08:51 07/17/21 09:29 Ferrous Gluconate 324 Mg Tablet PO 324 mg BIDWM SHAHRZAD Administration Folic Acid 1 mg 07/17/21 09:00 07/17/21 09:28 Folic Acid 1 Mg Tablet PO 1 mg DAILY SHAHRZAD Administration Sodium Chloride 1,000 mls @ 83.333 mls/hr 07/15/21 09:00 07/17/21 01:19 Normal Saline 0.9% IV 83.3 mls/hr .Q12H SHAHRZAD Administration Sodium Chloride 10 ml 07/13/21 03:33 07/13/21 04:40 Sodium Chloride Flush 0.9% 10 Ml Syringe IVP 10 ml PRN PRN Administration NEEDED PER PROVIDER ORDERS Sodium Chloride 10 ml 07/13/21 09:00 07/17/21 08:09 Sodium Chloride Flush 0.9% 10 Ml Syringe IVP Not Given 0100,0900,1700 SHAHRZAD - Lab Result Fish Bone Diagrams: 07/17/21 04:43 07/17/21 04:43 - Additional Planning My Orders: My Active Orders 07/16/21 Lunch Regular Diet [DIET] 07/17/21 08:51 Ferrous Gluconate [Fergon] 324 mg PO BIDWM 07/17/21 09:00 Cyanocobalamin [Vitamin B-12] 500 mcg PO DAILY Folic Acid 1 mg PO DAILY 07/17/21 09:04 Vital Signs - Orthostatic [RC] DAILY 07/18/21 05:00 CK- CREATINE KINASE [CHEM] DAILYLAB Subjective - Subjective Patient Reports: Resting Comfortably Nursing Reports: Other (Occaisionally refuses care, is easily re-directed, follows directions, has good vocabulary.) Objective Vital Signs: Vital Signs - 24 hr 07/16/21 07/16/21 07/17/21 12:34 18:00 02:17 Temperature 37.2 C 36.4 C L 36.1 C L Heart Rate [ 112 H 86 Brachial] Heart Rate [ 89 Radial] Respiratory 18 14 16 Rate Blood Pressure 162/84 H [Left Brachial artery] Blood Pressure 150/79 H 146/84 H [Left Radial artery] O2 Saturation 97 98 96 07/17/21 08:08 Temperature 37.1 C Heart Rate [ 83 Brachial] Heart Rate [ Radial] Respiratory 16 Rate Blood Pressure 140/79 H [Left Brachial artery] Blood Pressure [Left Radial artery] O2 Saturation 96 Oxygen O2 Source Room air I&O (Last 24 Hrs): Intake and Output Totals x24h 07/15/21 07/16/21 07/17/21 23:59 23:59 23:59 Intake Total 3335.333 2330.000 1260.727 Output Total 250 100 300 Balance 3085.333 2230.000 960.727 General: Alert, Other (Oriented only to self and SO (at her bedside).) HEENT: EOMI, Other (Upper lip swollen, nasal bruise is smaller.) Neck: Supple, No JVD Neuro: Alert, Disoriented, Non Focal Cardiovascular: Regular rate Respiratory: No respiratory distress Abdomen: Soft Extremities: No clubbing, No edema - Results Results: Laboratory Results WBC 7.1 x10^3/uL (4.8-10.8) 07/17/21 04:43 RBC 3.18 10^6/uL (4.20-5.40) L 07/17/21 04:43 Hgb 10.0 g/dL (12.0-16.0) L 07/17/21 04:43 Hct 29.9 % (37.0-47.0) L 07/17/21 04:43 MCV 94.0 fL (81.0-99.0) 07/17/21 04:43 MCH 31.4 pg (27.0-31.0) H 07/17/21 04:43 MCHC 33.4 g/dL (32.0-36.0) 07/17/21 04:43 RDW 12.7 % (12.0-15.0) 07/17/21 04:43 Plt Count 252 10^3/uL (130-450) 07/17/21 04:43 MPV 9.4 fL (7.9-10.8) 07/17/21 04:43 Neut # (Auto) 5.7 10^3/uL (1.5-6.6) 07/17/21 04:43 Lymph # (Auto) 0.7 10^3/uL (1.5-3.5) L 07/17/21 04:43 Walsh # (Auto) 0.6 10^3/uL (0.0-1.0) 07/17/21 04:43 Eos # (Auto) 0.1 10^3/uL (0.0-0.7) 07/17/21 04:43 Baso # (Auto) 0.0 10^3/uL (0.0-0.1) 07/17/21 04:43 Absolute Nucleated RBC 0.00 x10^3/uL 07/17/21 04:43 Nucleated RBC % 0.0 /100WBC 07/17/21 04:43 Sodium 136 mmol/L (135-145) 07/17/21 04:43 Potassium 3.8 mmol/L (3.5-5.0) 07/17/21 04:43 Chloride 104 mmol/L (101-111) 07/17/21 04:43 Carbon Dioxide 24 mmol/L (21-32) 07/17/21 04:43 Anion Gap 8.0 (6-13) 07/17/21 04:43 BUN 15 mg/dL (6-20) 07/17/21 04:43 Creatinine 0.7 mg/dL (0.4-1.0) 07/17/21 04:43 Estimated GFR (MDRD) 82 (>89) L 07/17/21 04:43 Glucose 127 mg/dL (70-100) H 07/17/21 04:43 Lactic Acid 2.0 mmol/L (0.5-2.2) 07/13/21 07:53 Calcium 7.9 mg/dL (8.5-10.3) L 07/17/21 04:43 Magnesium 1.8 mg/dL (1.7-2.8) 07/13/21 16:31 Iron 25 ug/dL (28-170) L 07/17/21 04:43 TIBC 255 ug/dL (250-450) 07/17/21 04:43 % Saturation 10 % (20-50) L 07/17/21 04:43 Transferrin 182 mg/dL (192-382) L 07/17/21 04:43 Total Bilirubin 0.5 mg/dL (0.2-1.0) 07/13/21 02:22 AST 30 IU/L (10-42) 07/13/21 02:22 ALT 15 IU/L (10-60) 07/13/21 02:22 Alkaline Phosphatase 92 IU/L (42-121) 07/13/21 02:22 Total Creatine Kinase 247 IU/L (22-269) 07/17/21 04:33 Troponin I High Sens 79.4 ng/L (2.3-14.8) H* 07/13/21 16:31 Total Protein 6.9 g/dL (6.7-8.2) 07/13/21 02:22 Albumin 3.9 g/dL (3.2-5.5) 07/13/21 02:22 Globulin 3.0 g/dL (2.1-4.2) 07/13/21 02:22 Albumin/Globulin Ratio 1.3 (1.0-2.2) 07/13/21 02:22 Lipase 36 U/L (22-51) 07/13/21 02:22 Vitamin B12 78 pg/mL (180-914) L 07/17/21 04:43 Folate 5.57 ng/mL (5.90 - >24.8) L 07/17/21 04:43 TSH 4.15 uIU/mL (0.34-5.60) 07/13/21 02:22 Urine Color YELLOW 07/13/21 03:30 Urine Clarity CLEAR (CLEAR) 07/13/21 03:30 Urine pH 6.0 PH (5.0-7.5) 07/13/21 03:30 Ur Specific [place] 1.025 (1.002-1.030) 07/13/21 03:30 Urine Protein NEGATIVE mg/dL (NEGATIVE) 07/13/21 03:30 Urine Glucose (UA) NEGATIVE mg/dL (NEGATIVE) 07/13/21 03:30 Urine Ketones NEGATIVE mg/dL (NEGATIVE) 07/13/21 03:30 Urine Occult Blood SMALL (NEGATIVE) H 07/13/21 03:30 Urine Nitrite NEGATIVE (NEGATIVE) 07/13/21 03:30 Urine Bilirubin NEGATIVE (NEGATIVE) 07/13/21 03:30 Urine Urobilinogen 0.2 (NORMAL) E.U./dL (NORMAL) 07/13/21 03:30 Ur Leukocyte Esterase NEGATIVE (NEGATIVE) 07/13/21 03:30 Urine RBC 0-5 /HPF (0-5) 07/13/21 03:30 Urine WBC 0-3 /HPF (0-5) 07/13/21 03:30 Ur Squamous Epith Cells RARE Squamous (<= Few) 07/13/21 03:30 Urine Bacteria None Seen /HPF (None Seen) 07/13/21 03:30 Ur Microscopic Review INDICATED 07/13/21 03:30 Urine Culture Comments NOT INDICATED 07/13/21 03:30 Ethyl Alcohol < 5.0 mg/dL 07/13/21 02:22 SARS-CoV-2 (PCR) NOT DETECTED 07/13/21 03:30
[2021-07-17] MEDS ORDERED: SODIUM CHLORIDE 0.9% 1,000 ML IV SCH (13:04)
[2021-07-18] MEDS: ACETAMINOPHEN 325 MG TABLET PO SCH ×4 (03:32→21:08)
[2021-07-18 06:40] LABS: BASOPHILS % (AUTO) 0.6 %; EOSINOPHILS # (AUTO) 0.2 10^3/uL (0.0-0.7); EOSINOPHILS % (AUTO) 3.9 %; HCT - HEMATOCRIT 31.2 % (37.0-47.0); HGB - HEMOGLOBIN 10.4 g/dL (12.0-16.0); LYMPHOCYTES # (AUTO) 0.8 10^3/uL (1.5-3.5); LYMPHOCYTES % (AUTO) 14.6 %; MEAN CORPUSCULAR HEMOGLOBIN 31.5 pg (27.0-31.0); MEAN CORPUSCULAR HGB CONC 33.3 g/dL (32.0-36.0); MEAN CORPUSCULAR VOLUME 94.5 fL (81.0-99.0); MEAN PLATELET VOLUME 9.4 fL (7.9-10.8); MONOCYTES # (AUTO) 0.4 10^3/uL (0.0-1.0); MONOCYTES % (AUTO) 7.6 %; NEUTROPHILS # (AUTO) 3.9 10^3/uL (1.5-6.6); NEUTROPHILS % (AUTO) 72.7 %; PLT - PLATELET COUNT 244 10^3/uL (130-450); RED CELL DISTRIBUTION WIDTH 13.1 % (12.0-15.0); WHITE BLOOD COUNT 5.4 x10^3/uL (4.8-10.8)
[2021-07-18 06:52] LABS: CALCIUM 8.5 mg/dL (8.5-10.3); CREATININE 0.7 mg/dL (0.4-1.0); POTASSIUM 4.1 mmol/L (3.5-5.0)
[2021-07-18] MEDS: FERROUS GLUCONATE 324 MG TABLET PO SCH ×2 (07:59→15:47)
[2021-07-18] MEDS: CALCIUM CARBONATE CHEW 500 MG TABLET PO SCH ×2 (09:05→21:08)
[2021-07-18] MEDS: SODIUM CHLORIDE FLUSH 0.9% 10 ML SYRINGE IVP SCH ×2 (09:05→15:47)
[2021-07-18] MEDS: CYANOCOBALAMIN 500 MCG TABLET PO SCH (09:05)
[2021-07-18] MEDS: CHOLECALCIFEROL 25 MCG TABLET PO SCH (09:05)
[2021-07-18] MEDS: FOLIC ACID 1 MG TABLET PO SCH (09:05)
--- NOTE | 2021-07-18 15:37 | PROVIDER PROGRESS NOTE ---
Assessment/Plan - Problem List (1) Alzheimer's dementia Assessment/Plan: She was described as having "altered mental status" at admission but we now think this is her baseline. Patient is very demented. She is only oriented to self an Jet, her SO. He has been her caregiver and they are never apart, have l ived together for >25 years. She fired a hired caregiver after 2 days in the recent past, because the patient said that caregiver was impacting "her independence". She has wandered outside at least twice, as per Jet. She scored 0/19 on Cognitive Eval done by OT. The pt became frustrated and agitated at the end. Her SO was in room and witnessed the poor results. I spoke to Jet, outside of the room that day and explained to him that she has the memory of and ability to make decisions like that of a 3 year old child. Therefore, I advised he should step in and make decisions and staff are not taking her demands at face value (like demanding to be discharged, several days ago). She would not be safe living at home in her past living situation, as evidenced by her wandering off, this recent fall, and her results on cognitive testing. The patient has been improving with PT and PT notes state she only needs contact guard assist, therefore she does not need PT rehab at a SNF. We have consulted with social work. Today Jet spoke to SW at the patient's bedside and voiced that he wants her to go to a [facility] for [facility] care. She would be medically ready for [facility] tomorrow. (2) Fall at home Conclusion/Plan: She had an unwitnessed fall, after wandering out of the house, and has a comminuted R humerus fracture and facial CT showed bilateral nasal bone, nasal septum and anterior maxillary sinus fractures. PT has started to work with her. She is still at the high risk of falls based on her advanced dementia, weakness and chronic lumbar pain (as per [facility] records that we recvd). She has not been orthostatic, those checks will be stopped. Will replace deficiencies that have found to be causing her marked anemia (see #7 and #8). We hope pt can go to a memory care unit and get [facility] PT and OT rehab. (3) Proximal humeral fracture Conclusion/Plan: She had an unwitnessed fall, has a comminuted R humerus fracture. Patient was placed in a sling in the ER and orthopedic consult was ordered. Dr. Huffman documented his consult, confirming what he discussed with the last Hospitalist, Rob Godwin NP: he recommend no surgery for pt at this point, continue pain control, wear sling only prn for pain relief, and followup with orthopedics in office setting. Patient describes no pain and has been trying to use right arm. Ortho approved she may have a break from wearing the sling. PT and OT are working with her. (4) Nasal and maxillary fracture Conclusion/Plan: She claims she has no pain. The bruises are subsiding. She is eating and drinking without trouble. (5) Iron deficiency anemia Conclusion/Plan: We started oral Ferrous Gluconate replacement. Following H/H daily, would transfuse if Hgb <7. (6) Combined B12 and Folate deficincy anemia Conclusion/Plan: We ordered oral replacement therapy. Given the marked anemia and deficiency of iron, B12 and folate, I suspect she has poor nutrition at home, related to her dementia. (7) Osteopenia Conclusion/Plan: This was documented in her records from [facility] and she used to be on Evista. She was on no meds whatsoever now at admission. Here we have started vitamin D and Ca supplements. (8) Rhabdomyolysis Resolved with normal serum CKs now. IV fluids were stopped at 0400 this a.m. (9) Dehydration Conclusion/Plan: Resolved. Creatinine and BUN are in a normal range now (10) Neutrophilic leukocytosis Conclusion/Plan: Resolved. It likely was a phase reactant. No evidence of infection. (11) Elevated troponin Conclusion/Plan: Improved. Her troponins were 90>> 114>> 128>> 79. EKG did not show acute ischem ic changes. Pt has been hemodynamically stable. It was likely demand ischemia from the dehydration and falling event. (12) Lactic acidosis Conclusion/Plan: Resolved. Patient's elevated lactic acid at admission was likely caused by patient's significant dehydration. - Current Meds Current Meds: Current Medications Generic Name Dose Route Start Last Admin Trade Name Freq PRN Reason Stop Dose Admin Acetaminophen 650 mg 07/13/21 04:00 07/18/21 10:27 Acetaminophen 325 Mg Tablet PO 650 mg Q6H SHAHRZAD Administration Calcium Carbonate/Glycine 500 mg 07/13/21 21:00 07/18/21 09:05 Calcium Carbonate Chew 500 Mg Tablet PO 500 mg BID SHAHRZAD Administration Cholecalciferol 50 mcg 07/13/21 10:00 07/18/21 09:05 Cholecalciferol 25 Mcg Tablet PO 50 mcg DAILY SHAHRZAD Administration Cyanocobalamin 500 mcg 07/17/21 09:00 07/18/21 09:05 Cyanocobalamin 500 Mcg Tablet PO 500 mcg DAILY SHAHRZAD Administration Ferrous Gluconate 324 mg 07/17/21 08:51 07/18/21 07:59 Ferrous Gluconate 324 Mg Tablet PO 324 mg BIDWM SHAHRZAD Administration Folic Acid 1 mg 07/17/21 09:00 07/18/21 09:05 Folic Acid 1 Mg Tablet PO 1 mg DAILY SHAHRZAD Administration Sodium Chloride 10 ml 07/13/21 03:33 07/13/21 04:40 Sodium Chloride Flush 0.9% 10 Ml Syringe IVP 10 ml PRN PRN Administration NEEDED PER PROVIDER ORDERS Sodium Chloride 10 ml 07/13/21 09:00 07/18/21 09:05 Sodium Chloride Flush 0.9% 10 Ml Syringe IVP 10 ml 0100,0900,1700 SHAHRZAD Administration - Lab Result Fish Bone Diagrams: 07/18/21 06:18 07/18/21 06:18 Subjective - Subjective Patient Reports: Resting Comfortably, No Complaints Objective Vital Signs: Vital Signs - 24 hr 07/18/21 07/18/21 03:33 07:36 Temperature 36.6 C 3.0 C L Heart Rate [ 99 90 Brachial] Respiratory 18 18 Rate Blood Pressure 160/85 H [Left Brachial artery] Blood Pressure 154/82 H [Left Radial artery] O2 Saturation 93 95 Oxygen O2 Source Room air I&O (Last 24 Hrs): Intake and Output Totals x24h 07/16/21 07/17/21 07/18/21 23:59 23:59 23:59 Intake Total 2330.000 2925.056 1480 Output Total 100 300 Balance 2230.000 2625.056 1480 General: Alert, Other (Oriented to self and SO only) HEENT: Other (bruise of nose absent, bruise now seen of jowls and upper lip still swollen) Neuro: Alert, Non Focal, Other (Only oriented to self and SO) Cardiovascular: Regular rate Respiratory: No respiratory distress Abdomen: Soft Extremities: No clubbing, No edema - Results Results: Laboratory Results WBC 5.4 x10^3/uL (4.8-10.8) 07/18/21 06:18 RBC 3.30 10^6/uL (4.20-5.40) L 07/18/21 06:18 Hgb 10.4 g/dL (12.0-16.0) L 07/18/21 06:18 Hct 31.2 % (37.0-47.0) L 07/18/21 06:18 MCV 94.5 fL (81.0-99.0) 07/18/21 06:18 MCH 31.5 pg (27.0-31.0) H 07/18/21 06:18 MCHC 33.3 g/dL (32.0-36.0) 07/18/21 06:18 RDW 13.1 % (12.0-15.0) 07/18/21 06:18 Plt Count 244 10^3/uL (130-450) 07/18/21 06:18 MPV 9.4 fL (7.9-10.8) 07/18/21 06:18 Neut # (Auto) 3.9 10^3/uL (1.5-6.6) 07/18/21 06:18 Lymph # (Auto) 0.8 10^3/uL (1.5-3.5) L 07/18/21 06:18 Glenn # (Auto) 0.4 10^3/uL (0.0-1.0) 07/18/21 06:18 Eos # (Auto) 0.2 10^3/uL (0.0-0.7) 07/18/21 06:18 Baso # (Auto) 0.0 10^3/uL (0.0-0.1) 07/18/21 06:18 Absolute Nucleated RBC 0.00 x10^3/uL 07/18/21 06:18 Nucleated RBC % 0.0 /100WBC 07/18/21 06:18 Sodium 138 mmol/L (135-145) 07/18/21 06:18 Potassium 4.1 mmol/L (3.5-5.0) 07/18/21 06:18 Chloride 105 mmol/L (101-111) 07/18/21 06:18 Carbon Dioxide 25 mmol/L (21-32) 07/18/21 06:18 Anion Gap 8.0 (6-13) 07/18/21 06:18 BUN 16 mg/dL (6-20) 07/18/21 06:18 Creatinine 0.7 mg/dL (0.4-1.0) 07/18/21 06:18 Estimated GFR (MDRD) 82 (>89) L 07/18/21 06:18 Glucose 118 mg/dL (70-100) H 07/18/21 06:18 Lactic Acid 2.0 mmol/L (0.5-2.2) 07/13/21 07:53 Calcium 8.5 mg/dL (8.5-10.3) 07/18/21 06:18 Magnesium 1.8 mg/dL (1.7-2.8) 07/13/21 16:31 Iron 25 ug/dL (28-170) L 07/17/21 04:43 TIBC 255 ug/dL (250-450) 07/17/21 04:43 % Saturation 10 % (20-50) L 07/17/21 04:43 Transferrin 182 mg/dL (192-382) L 07/17/21 04:43 Total Bilirubin 0.5 mg/dL (0.2-1.0) 07/13/21 02:22 AST 30 IU/L (10-42) 07/13/21 02:22 ALT 15 IU/L (10-60) 07/13/21 02:22 Alkaline Phosphatase 92 IU/L (42-121) 07/13/21 02:22 Total Creatine Kinase 155 IU/L (22-269) 07/18/21 06:18 Troponin I High Sens 79.4 ng/L (2.3-14.8) H* 07/13/21 16:31 Total Protein 6.9 g/dL (6.7-8.2) 07/13/21 02:22 Albumin 3.9 g/dL (3.2-5.5) 07/13/21 02:22 Globulin 3.0 g/dL (2.1-4.2) 07/13/21 02:22 Albumin/Globulin Ratio 1.3 (1.0-2.2) 07/13/21 02:22 Lipase 36 U/L (22-51) 07/13/21 02:22 Vitamin B12 78 pg/mL (180-914) L 07/17/21 04:43 Folate 5.57 ng/mL (5.90 - >24.8) L 07/17/21 04:43 TSH 4.15 uIU/mL (0.34-5.60) 07/13/21 02:22 Urine Color YELLOW 07/13/21 03:30 Urine Clarity CLEAR (CLEAR) 07/13/21 03:30 Urine pH 6.0 PH (5.0-7.5) 07/13/21 03:30 Ur Specific [place] 1.025 (1.002-1.030) 07/13/21 03:30 Urine Protein NEGATIVE mg/dL (NEGATIVE) 07/13/21 03:30 Urine Glucose (UA) NEGATIVE mg/dL (NEGATIVE) 07/13/21 03:30 Urine Ketones NEGATIVE mg/dL (NEGATIVE) 07/13/21 03:30 Urine Occult Blood SMALL (NEGATIVE) H 07/13/21 03:30 Urine Nitrite NEGATIVE (NEGATIVE) 07/13/21 03:30 Urine Bilirubin NEGATIVE (NEGATIVE) 07/13/21 03:30 Urine Urobilinogen 0.2 (NORMAL) E.U./dL (NORMAL) 07/13/21 03:30 Ur Leukocyte Esterase NEGATIVE (NEGATIVE) 07/13/21 03:30 Urine RBC 0-5 /HPF (0-5) 07/13/21 03:30 Urine WBC 0-3 /HPF (0-5) 07/13/21 03:30 Ur Squamous Epith Cells RARE Squamous (<= Few) 07/13/21 03:30 Urine Bacteria None Seen /HPF (None Seen) 07/13/21 03:30 Ur Microscopic Review INDICATED 07/13/21 03:30 Urine Culture Comments NOT INDICATED 07/13/21 03:30 Ethyl Alcohol < 5.0 mg/dL 07/13/21 02:22 SARS-CoV-2 (PCR) NOT DETECTED 07/13/21 03:30
[2021-07-19] MEDS: ACETAMINOPHEN 325 MG TABLET PO SCH ×4 (03:24→21:42)
[2021-07-19] MEDS: SODIUM CHLORIDE FLUSH 0.9% 10 ML SYRINGE IVP SCH ×3 (03:25→15:59)
[2021-07-19] MEDS ORDERED: cloNIDine 0.1 MG PATCH TOP SCH (08:00)
[2021-07-19] MEDS: FOLIC ACID 1 MG TABLET PO SCH (08:22)
[2021-07-19] MEDS: CHOLECALCIFEROL 25 MCG TABLET PO SCH (08:22)
[2021-07-19] MEDS: CYANOCOBALAMIN 500 MCG TABLET PO SCH (08:22)
[2021-07-19] MEDS: FERROUS GLUCONATE 324 MG TABLET PO SCH ×2 (08:25→15:59)
[2021-07-19] MEDS: PRENATAL VITAMIN TABLET PO SCH (09:27)
[2021-07-19] MEDS: CALCIUM CARBONATE CHEW 500 MG TABLET PO SCH ×2 (09:27→21:42)
[2021-07-19] MEDS ORDERED: CYANOCOBALAMIN 1,000 MCG/ML VIAL IM ONE (10:28)
--- NOTE | 2021-07-19 12:31 | PROVIDER PROGRESS NOTE ---
Assessment/Plan - Problem List (1) Alzheimer's dementia Assessment/Plan: She was described as having "altered mental status" at admission but we now think this is her baseline. Patient is very demented and carries a Dx of Alzheimer's Dementia in her [facility] Notes, since 2017. She is only oriented to self and to Jet, her Significant Other of >25 years. He has been her caregiver and they are never apart. She fired a hired caregiver after 2 days in the recent past, because the patient complained that the caregiver was "intruding on her independence". She has wandered outside at least twice recently, Jet admitted. The patient scored 0/19 on Cognitive Eval done here by OT. The pt became frustrated and agitated at the end of the eval. Jet was in room and witnessed the poor results. I spoke to Jet, outside of the room that day and explained to him that she has the memory of, and ability to make decisions, like that of a 2 year old child. Therefore, I advised he should step up and make decisions on her behalf and staff are not taking her demands at face value (like demanding to be discharged AMA, several days ago, which he went along with). She would not be safe living at home in this past living situation, as evidenced by her wandering off, this recent fall resulting in trauma, and her results on cognitive testing. The patient has been improving with PT and the PT notes state she only needs contact guard assist, therefore she does not need PT rehab at a SNF. We have consulted with social work. Jet spoke to SW at the patient's bedside and voiced that he wants her to go to a Memory Care Center for custodial. She is medically ready for [facility]. Today an RN from a facility is to evaluate her in person, and there may be a spot in Memory Care for her and a spot in Assisted Living for him, where they would go to together. (2) Fall at home Conclusion/Plan: She had an unwitnessed fall, after wandering out of the house, and has a comminuted R humerus fracture and facial CT showed bilateral nasal bone, nasal septum and anterior maxillary sinus fractures. PT has started to work with her. She is still at the high risk of falls based on her advanced dementia, weakness and chronic lumbar pain (as per [facility] records that we recvd). She has not been orthostatic, those VS checks were stopped. We have started to replace deficiencies that have found to be causing her marked anemia (see #5 and #6). We hope pt can go to a memory care unit and may need an order for [facility] RN, PT rehab and OT rehab. (3) Proximal humeral fracture Conclusion/Plan: She had an unwitnessed fall, has a comminuted R humerus fracture. Patient was placed in a sling in the ER and orthopedic consult was ordered. Dr. Huffman documented his consult, confirming what he discussed with the last Hospitalist, Rob Godwin NP: he recommend no surgery for pt at this point, continue prn meds for pain control, wear sling only prn for pain relief, and followup with orthopedics in office setting. Patient describes no pain and has been trying to use right arm. Ortho approved she may have a break from wearing the sling. PT and OT are working with her. (4) Nasal and maxillary fracture Conclusion/Plan: She claims she has no pain. The bruises are subsiding. She is eating and drinking without trouble. (5) Iron deficiency anemia Conclusion/Plan: We started oral Ferrous Gluconate replacement. We followed H/H daily, which started at 14, considering transfusion if Hgb dropped to <7. Hgb has plateaued at 10 and daily CBCs are stopped. 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 Given the marked anemia and deficiency of iron, B12 and folate, I suspect she has poor nutrition at home, related to her dementia. Jet confirmed she is stubborn and picky and will only eat certain things, never eats fruits and vegetables. (7) Osteopenia Conclusion/Plan: This was documented in her records from [facility] and she used to be on Ev[facility]. She was on no meds whatsoever now at admission. Here we have started vitamin D and Ca supplements. (8) Rhabdomyolysis Resolved with normal serum CKs now. IV fluids were stopped yesterdaty. (9) Dehydration Conclusion/Plan: Resolved. Creatinine and BUN are in a normal range now. No further daily a.m. labs are ordered. (10) Neutrophilic leukocytosis Conclusion/Plan: Resolved. It likely was a phase reactant. No evidence of infection. (11) Elevated troponin Conclusion/Plan: Improved. Her troponins were 90>> 114>> 128>> 79. EKG did not show acute ischemic changes. Pt has been hemodynamically stable. It was likely demand ischemia from the dehydration and falling event. (12) Lactic acidosis Conclusion/Plan: Resolved. Patient's elevated lactic acid at admission was likely caused by patient's significant dehydration. - Current Meds Current Meds: Current Medications Generic Name Dose Route Start Last Admin Trade Name Gonzalo PRN Reason Stop Dose Admin Acetaminophen 650 mg 07/13/21 04:00 07/19/21 09:20 Acetaminophen 325 Mg Tablet PO 650 mg Q6H SHAHRZAD Administration Calcium Carbonate/Glycine 500 mg 07/13/21 21:00 07/19/21 09:27 Calcium Carbonate Chew 500 Mg Tablet PO 500 mg BID SHAHRZAD Administration Cholecalciferol 50 mcg 07/13/21 10:00 07/19/21 08:22 Cholecalciferol 25 Mcg Tablet PO 50 mcg DAILY SHAHRZAD Administration Clonidine HCl 1 patch 07/19/21 08:00 07/19/21 09:21 Clonidine 0.1 Mg Patch TOP 1 patch Q7D SHAHRZAD Administration Ferrous Gluconate 324 mg 07/17/21 08:51 07/19/21 08:25 Ferrous Gluconate 324 Mg Tablet PO 324 mg BIDWM SHAHRZAD Administration Multivit/Folic Acid/Iron 1 tab 07/19/21 09:00 07/19/21 09:27 Vitamin Tablet PO 1 tab DAILYWM SHAHRZAD Administration Sodium Chloride 10 ml 07/13/21 03:33 07/13/21 04:40 Sodium Chloride Flush 0.9% 10 Ml Syringe IVP 10 ml PRN PRN Administration NEEDED PER PROVIDER ORDERS Sodium Chloride 10 ml 07/13/21 09:00 07/19/21 08:22 Sodium Chloride Flush 0.9% 10 Ml Syringe IVP 10 ml 0100,0900,1700 SHAHRZAD Administration - Lab Result Fish Bone Diagrams: 07/18/21 06:18 07/18/21 06:18 - Additional Planning My Orders: My Active Orders 07/19/21 08:00 cloNIDine 0.1 MG PATCH [[id number]] 1 patch TOP Q7D 07/19/21 09:00 Vitamin [Trinatal Rx 1] 1 tab PO DAILYWM 07/20/21 09:00 Cyanocobalamin [Vitamin B-12] 1,000 mcg PO DAILY Subjective - Subjective Patient Reports: Resting Comfortably, No Complaints Objective Vital Signs: Vital Signs - 24 hr 07/19/21 07:31 Temperature 37.3 C Heart Rate [ 85 Brachial] Respiratory 20 Rate Blood Pressure 153/83 H [Left Brachial artery] O2 Saturation 92 Oxygen O2 Source Room air I&O (Last 24 Hrs): Intake and Output Totals x24h 07/17/21 07/18/21 07/19/21 23:59 23:59 23:59 Intake Total 2925.056 1730 340 Output Total 300 Balance 2625.056 1730 340 General: Alert HEENT: Mucous membr. moist/pink, Other (bruise of jowls) Neck: Supple Neuro: Alert (Non-focal), Other (Disoriented axcept to self and to Jet, her boyfriend of >25 years.) Cardiovascular: Regular rate Respiratory: No respiratory distress Extremities: No edema - Results Results: Laboratory Results WBC 5.4 x10^3/uL (4.8-10.8) 07/18/21 06:18 RBC 3.30 10^6/uL (4.20-5.40) L 07/18/21 06:18 Hgb 10.4 g/dL (12.0-16.0) L 07/18/21 06:18 Hct 31.2 % (37.0-47.0) L 07/18/21 06:18 MCV 94.5 fL (81.0-99.0) 07/18/21 06:18 MCH 31.5 pg (27.0-31.0) H 07/18/21 06:18 MCHC 33.3 g/dL (32.0-36.0) 07/18/21 06:18 RDW 13.1 % (12.0-15.0) 07/18/21 06:18 Plt Count 244 10^3/uL (130-450) 07/18/21 06:18 MPV 9.4 fL (7.9-10.8) 07/18/21 06:18 Neut # (Auto) 3.9 10^3/uL (1.5-6.6) 07/18/21 06:18 Lymph # (Auto) 0.8 10^3/uL (1.5-3.5) L 07/18/21 06:18 [place] # (Auto) 0.4 10^3/uL (0.0-1.0) 07/18/21 06:18 Eos # (Auto) 0.2 10^3/uL (0.0-0.7) 07/18/21 06:18 Baso # (Auto) 0.0 10^3/uL (0.0-0.1) 07/18/21 06:18 Absolute Nucleated RBC 0.00 x10^3/uL 07/18/21 06:18 Nucleated RBC % 0.0 /100WBC 07/18/21 06:18 Sodium 138 mmol/L (135-145) 07/18/21 06:18 Potassium 4.1 mmol/L (3.5-5.0) 07/18/21 06:18 Chloride 105 mmol/L (101-111) 07/18/21 06:18 Carbon Dioxide 25 mmol/L (21-32) 07/18/21 06:18 Anion Gap 8.0 (6-13) 07/18/21 06:18 BUN 16 mg/dL (6-20) 07/18/21 06:18 Creatinine 0.7 mg/dL (0.4-1.0) 07/18/21 06:18 Estimated GFR (MDRD) 82 (>89) L 07/18/21 06:18 Glucose 118 mg/dL (70-100) H 07/18/21 06:18 Lactic Acid 2.0 mmol/L (0.5-2.2) 07/13/21 07:53 Calcium 8.5 mg/dL (8.5-10.3) 07/18/21 06:18 Magnesium 1.8 mg/dL (1.7-2.8) 07/13/21 16:31 Iron 25 ug/dL (28-170) L 07/17/21 04:43 TIBC 255 ug/dL (250-450) 07/17/21 04:43 % Saturation 10 % (20-50) L 07/17/21 04:43 Transferrin 182 mg/dL (192-382) L 07/17/21 04:43 Total Bilirubin 0.5 mg/dL (0.2-1.0) 07/13/21 02:22 AST 30 IU/L (10-42) 07/13/21 02:22 ALT 15 IU/L (10-60) 07/13/21 02:22 Alkaline Phosphatase 92 IU/L (42-121) 07/13/21 02:22 Total Creatine Kinase 155 IU/L (22-269) 07/18/21 06:18 Troponin I High Sens 79.4 ng/L (2.3-14.8) H* 07/13/21 16:31 Total Protein 6.9 g/dL (6.7-8.2) 07/13/21 02:22 Albumin 3.9 g/dL (3.2-5.5) 07/13/21 02:22 Globulin 3.0 g/dL (2.1-4.2) 07/13/21 02:22 Albumin/Globulin Ratio 1.3 (1.0-2.2) 07/13/21 02:22 Lipase 36 U/L (22-51) 07/13/21 02:22 Vitamin B12 78 pg/mL (180-914) L 07/17/21 04:43 Folate 5.57 ng/mL (5.90 - >24.8) L 07/17/21 04:43 TSH 4.15 uIU/mL (0.34-5.60) 07/13/21 02:22 Urine Color YELLOW 07/13/21 03:30 Urine Clarity CLEAR (CLEAR) 07/13/21 03:30 Urine pH 6.0 PH (5.0-7.5) 07/13/21 03:30 Ur Specific [place] 1.025 (1.002-1.030) 07/13/21 03:30 Urine Protein NEGATIVE mg/dL (NEGATIVE) 07/13/21 03:30 Urine Glucose (UA) NEGATIVE mg/dL (NEGATIVE) 07/13/21 03:30 Urine Ketones NEGATIVE mg/dL (NEGATIVE) 07/13/21 03:30 Urine Occult Blood SMALL (NEGATIVE) H 07/13/21 03:30 Urine Nitrite NEGATIVE (NEGATIVE) 07/13/21 03:30 Urine Bilirubin NEGATIVE (NEGATIVE) 07/13/21 03:30 Urine Urobilinogen 0.2 (NORMAL) E.U./dL (NORMAL) 07/13/21 03:30 Ur Leukocyte Esterase NEGATIVE (NEGATIVE) 07/13/21 03:30 Urine RBC 0-5 /HPF (0-5) 07/13/21 03:30 Urine WBC 0-3 /HPF (0-5) 07/13/21 03:30 Ur Squamous Epith Cells RARE Squamous (<= Few) 07/13/21 03:30 Urine Bacteria None Seen /HPF (None Seen) 07/13/21 03:30 Ur Microscopic Review INDICATED 07/13/21 03:30 Urine Culture Comments NOT INDICATED 07/13/21 03:30 Ethyl Alcohol < 5.0 mg/dL 07/13/21 02:22 SARS-CoV-2 (PCR) NOT DETECTED 07/13/21 03:30
[2021-07-20] MEDS: SODIUM CHLORIDE FLUSH 0.9% 10 ML SYRINGE IVP SCH ×2 (01:00→09:37)
[2021-07-20] MEDS: ACETAMINOPHEN 325 MG TABLET PO SCH ×2 (04:03→09:39)
[2021-07-20] MEDS: CHOLECALCIFEROL 25 MCG TABLET PO SCH (08:24)
[2021-07-20] MEDS: PRENATAL VITAMIN TABLET PO SCH (08:24)
[2021-07-20] MEDS: FERROUS GLUCONATE 324 MG TABLET PO SCH (08:24)
--- NOTE | 2021-07-20 08:58 | Discharge Plan ---
"Discharge Plan for SNF / [facility] - Discharge Plan And Transition Orders Problem Reviewed?: Yes Disposition: 03 SNF DC/Xfer Condition: Stable Allergies and Adverse Reactions: Allergies Allergy/AdvReac Type Severity Reaction Status Date / Time Penicillins Allergy Unknown Unknown Verified 07/13/21 04:08 Health Concerns: fall/proximal humeral fracture/nasal and maxillary fracture, dementia Plan of Treatment: pt may continue fall precaution and follow with orthopedics in one week to check her right humeral fracture, continue sling support and may have a break from wearing the sling per orthopedics's recommendation, continue pain control. Pt may have lab monitor of her HGB level in one to two weeks. Care Goals: Stabilization, improvement of Patient's medical conditions - SNF / [facility] Transition Orders Admit to (Facility): [facility] Under the care of (Name): Medical provider of [facility] Discharge Diagnosis: Dementia, Falls, proximal humeral fracture, nasal and Maxillary fracture, anemia, osteopenia, dehydration, rhabdomyolysis Medicare Certification Statement: I do not certify that Post Hospital assisted care is medically necessary on a continuing basis for any of the conditions for which she/he is receiving care during hospitalization. Notify PCP of admission and forward orders to primary provider for signature. Weight on admission and: Weekly Other Notification Orders: Call PCP immediately if patient develops dyspnea, chest pain/tightness or edema. House Bowel Program: Yes Additional Bowel Program Orders: If no BM after 2 days, nurse may give M.O.M. 30ml PO PRN and/or ducolax Supp 1 OK and/or ISMAEL 250mg P.O., and/or senna 1-2 tabs PO. On day 3 nurse may give repeat above order until residents constipation is resolved. Annual Influenza Vaccine (between Nov 25 and June 24): Yes Two-step PPD per [facility] [phone] or approved exception documents: Yes Treatments & Other Orders: pt may continue fall precaution and follow with orthopedics in one week to check her right humeral fracture, continue sling support and may have a break from wearing the sling per orthopedics's recommendation, continue pain control. Pt may have lab monitor of her HGB level in one to two weeks. Medication Orders: PLEASE REFER TO THE DISCHARGE MEDICATION LIST. Insulin Orders?: No - Medications New Prescriptions: oxyCODONE [Roxicodone] 5 mg PO Q4HR PRN #20 tablet PRN Reason: Pain 5 to 7 Ferrous Gluconate [Fergon] 324 mg PO DAILY #30 tablet Pnv No.95/Ferrous Fum/Folic AC [ Tablet] 1 each PO DAILY #30 tablet Calcium Carbonate [Tums (Calcium Carbonate 500mg)] 500 mg PO BID #60 tablet Cyanocobalamin [Vitamin B-12] 1,000 mcg PO DAILY #30 tablet Cholecalciferol [Vitamin D3] 50 mcg PO DAILY #60 tablet - Diet Type: Geriatric Texture: Regular Liquids: Thin May have monthly special meal: Yes - Therapies | Activity Activity: Activity as Tolerated"
[2021-07-20] MEDS ORDERED: CYANOCOBALAMIN 500 MCG TABLET PO SCH (09:00)
--- NOTE | 2021-07-20 09:19 | DISCHARGE SUMMARY ---
Discharge Summary Admit Date: 07/13/21 Discharge Date: 07/20/21 Discharging Provider: Rob Godwin Condition at Discharge: Stable Discharge Disposition: 03 SNF DC/Xfer Discharge Facility Name: [facility] [place] - DIAGNOSES Discharge Diagnoses with Status of Each Condition: (1) dementia pt has hx of advanced dementia. pt is d/c to memory care nurse facility for continuing care. (2) Fall at home pt is d/c to memory care nurse facility for continuing care. (3) Proximal humeral fracture pt present proximal humeral fracture from her fall. orthopedics recommend no surgery for pt at this point, continue prn meds for pain control, and followup with orthopedics in office setting. Ortho approved she may have a break from wearing the sling. (4) Nasal and maxillary fracture She claims she has no pain. The bruises are subsiding. She is eating and drinking without trouble. It was caused by he fall (5) anemia HGB is stable, pt is prescribed iron, B12 and multiple vitamin including Folic acid (7) Osteopenia pt is prescribed calcium and Vitamin D3 (8) Rhabdomyolysis Resolved (9) Dehydration Resolved (10) Neutrophilic leukocytosis Resolved. It likely was a phase reactant. No evidence of infection. (11) Elevated troponin pt is hemodynamic stable. Her troponins were 90>> 114>> 128>> 79. EKG did not show acute ischemic changes. It was likely demand ischemia from the dehydration and falling event. (12) Lactic acidosis Resolved. - HPI History of Present Illness: refer from Ms. Tucker's HPI on 07/13/21 This is a 76-year-old woman with dementia presenting today after an unwitnessed fall. She lives wit her partner Linwood who is also her caregiver. Apparently, she left the house at 8pm after she was reportedly upset and then Linwood fell asleep. When he woke up 30 minutes later, he could not find her so he asked a neighbor to help and eventually called 911. She was found by law enforcement and EMS in a neighbors yard on the lawn next to a rock. It was expected she was outside for ~2 hours. She had sustained trauma to her face but her temperature was in normal limits per EMS. Patient is A&O x0, very demented, answers questions with unrelated statements, and thinks she is at home. During evaluation she states that she "needs to get to the guys" and "wants to head out." When asked she does not know her name or where she is from. She reportedly lives with her partner and caregiver, Linwood Lomeli. She recently was seen in this ED in February 2021 for swollen left foot after being sent in by the walk-in clinic. There was a wound on left ankle from wearing shoes on wrong feet and she was given antibiotics for cellulitis. She was quite demented at this time, but had not been formally diagnosed. A referral was made to Dr. Dotson but according to records, patient never followed up. There are records from around 2008 from her previous PCP Dr[facility] and she has been seen here periodically throughout the years. - ALLERGIES Allergies/Adverse Reactions: Allergies Allergy/AdvReac Type Severity Reaction Status Date / Time Penicillins Allergy Unknown Unknown Verified 07/13/21 04:08 - MEDICATIONS Home Medications: Ambulatory Orders Medication Instructions Recorded Confirmed Calcium Carbonate [Tums (Calcium 500 mg PO BID #60 tablet 07/20/21 Carbonate 500mg)] Cholecalciferol [Vitamin D3] 50 mcg PO DAILY #60 tablet 07/20/21 Cyanocobalamin [Vitamin B-12] 1,000 mcg PO DAILY #30 tablet 07/20/21 Ferrous Gluconate [Fergon] 324 mg PO DAILY #30 tablet 07/20/21 Pnv No.95/Ferrous Fum/Folic AC 1 each PO DAILY #30 tablet 07/20/21 [ Tablet] oxyCODONE [Roxicodone] 5 mg PO Q4HR PRN #20 tablet 07/20/21 - PHYSICAL EXAM AT DISCHARGE General Appearance: positive: No acute distress, Alert. negative: Lethargic Eyes Bilateral: positive: Normal inspection, No lid inflammation ENT: positive: ENT inspection nml, No signs of dehydration. negative: Purulent nasal drainage Neck: positive: Nml inspection, Trachea midline. negative: Tracheal deviation Respiratory: positive: Chest non-tender, No respiratory distress. negative: Wheezes Cardiovascular: positive: Regular rate & rhythm. negative: Tachycardia, Bradycardia, Systolic murmur Peripheral Pulses: positive: 2+ Abdomen: positive: Non-tender, No distention. negative: Tenderness Back: positive: Nml inspection Skin: positive: No rash, Warm, Dry. negative: Cyanosis Extremities: positive: Non-tender, Nml appearance Neurologic/Psychiatric: positive: Motor nml, Sensation nml. negative: Weakness, Sensory loss, Facial droop, Slurred/abnml speech - LABS Result Diagrams: 07/18/21 06:18 07/18/21 06:18 - FOLLOW UP Follow Up: pt may continue fall precaution and follow with orthopedics in one week to check her right humeral fracture, continue sling support and may have a break from wearing the sling per orthopedics's recommendation, continue pain control. Pt may have lab monitor of her HGB level in one to two weeks. - TIME SPENT Time Spent in Discharge (Minutes): 30
[2021-07-20] MEDS: CALCIUM CARBONATE CHEW 500 MG TABLET PO SCH (09:40)
[2021-07-20 10:15] VITALS: BP 99/64
== END 2021-07-20 11:28 | DRG 57 ==
LOC: EDUNIT# → ED 01:59 → MS2 03:33 → OBSVTOIN 07-14 10:05
PROVIDERS: ADMIT Specialist; ATTEND Nurse Practitioner Gerontology
DX: F03.90 Unspecified dementia, unspecified severity, without behavioral disturbance, psychotic disturbance, mood disturbance, and anxiety (principal); S00.31XA Abrasion of nose, initial encounter; G30.9 Alzheimer's disease, unspecified; S42.201A Unspecified fracture of upper end of right humerus, initial encounter for closed fracture; M62.82 Rhabdomyolysis; S42.211A Unspecified displaced fracture of surgical neck of right humerus, initial encounter for closed fracture; S02.40CA Maxillary fracture, right side, initial encounter for closed fracture; S02.40DA Maxillary fracture, left side, initial encounter for closed fracture; E87.2 Acidosis; E86.0 Dehydration; R00.0 Tachycardia, unspecified; F02.80 Dementia in other diseases classified elsewhere, unspecified severity, without behavioral disturbance, psychotic disturbance, mood disturbance, and anxiety; Z20.822 Contact with and (suspected) exposure to COVID-19; F41.9 Anxiety disorder, unspecified; S02.2XXA Fracture of nasal bones, initial encounter for closed fracture; W19.XXXA Unspecified fall, initial encounter; R77.8 Other specified abnormalities of plasma proteins; D50.9 Iron deficiency anemia, unspecified; D51.3 Other dietary vitamin B12 deficiency anemia; D52.9 Folate deficiency anemia, unspecified; D72.828 Other elevated white blood cell count; I10 Essential (primary) hypertension; J30.9 Allergic rhinitis, unspecified; M85.80 Other specified disorders of bone density and structure, unspecified site; Z80.3 Family history of malignant neoplasm of breast; Z82.49 Family history of ischemic heart disease and other diseases of the circulatory system; Z88.0 Allergy status to penicillin; Z91.83 Wandering in diseases classified elsewhere
CPT/HCPCS: 36415; 70450; 70486; 71045; 72125; 73030; 73060; 80048; 80053; 81001; 82550; 82607; 82746; 83540; 83605; 83690; 83735; 84443; 84466; 84484; 85025; 87635; 90471; 90715; 93005; 97116; 97162; 97166; 97530; 97535; 99285; A9270; G0480; J7120; 80320; 81003; 87086

== ENCOUNTER 2021-07-20 11:31 | Outpatient (CLI) | payer MEDICARE | END 2021-07-20 11:32 | disposition home or self-care (01) | LOC: EMS 11:31 | PROVIDERS: ATTEND Nurse Practitioner Gerontology | DX: R41.0 Disorientation, unspecified (principal); F03.90 Unspecified dementia, unspecified severity, without behavioral disturbance, psychotic disturbance, mood disturbance, and anxiety | CPT/HCPCS: A0425; A0428 ==

== ENCOUNTER 2021-07-27 13:53 | Outpatient (CLI) | payer MEDICARE | END 2021-07-27 13:54 | disposition E | LOC: EMS 13:53 | DX: I46.9 Cardiac arrest, cause unspecified (principal) ==